=== PATIENT | female | born 1950 | race Caucasian/White ===

== ENCOUNTER 2020-01-27 09:15 | Outpatient (REF) | payer MEDICARE, OTHER, SELFPAY ==
[2020-01-27 10:10] LABS: MANUAL DIFF FLAG NO
[2020-01-27 10:13] LABS: Basophils Absolute Auto 0.1 X10*3/uL (0.0-0.2); Basophils Percent Auto 0.7 % (0-2); Eosinophils Absolute Auto 0.2 X10*3/uL (0.0-0.4); Eosinophils Percent Auto 2.2 % (0-4); Hematocrit 44.1 % (37-47); Hemoglobin 14.4 g/dl (12.0-16.0); Imm Gran Abs Auto 0.02 X10*3/uL (0.00-0.03); Imm Gran Pct Auto 0.3 % (0.0-0.4); Lymphocytes Absolute Auto 1.2 X10*3/uL (1.2-4.9); Lymphocytes Percent Auto 15.6 % (20-40); Mean Corpuscular HGB Conc 32.7 g/dl (31.0-35.0); Mean Corpuscular Hemoglobin 29.8 pg (27.0-33.0); Mean Corpuscular Volume 91.1 fL (80-98); Mean Platelet Volume 10.4 fL (9.4-12.3); Monocytes Absolute Auto 0.4 X10*3/uL (0.1-1.2); Neutrophils Absolute Auto 5.6 X10*3/uL (2.0-8.3); Neutrophils Percent Auto 76.2 % (45-73); Platelet Count 324 X10*3/uL (160-400); Red Blood Count 4.84 X10*6/uL (4.20-5.50); Red Cell Distribution Width 13.4 % (11.0-16.0); White Blood Count 7.4 X10*3/uL (4.8-10.8)
[2020-01-27 10:41] LABS: Alanine Aminotransferase 18 U/L (0-31); Albumin Level 4.3 g/dL (3.5-5.0); Alkaline Phosphatase 70 U/L (39-117); Anion Gap 13 (12-20); Aspartate Amino Transferase 20 U/L (5-31); Bilirubin Total 0.6 mg/dL (0.0-1.0); Blood Urea Nitrogen 10 mg/dL (9-16); Calcium 9.2 mg/dL (8.4-10.2); Carbon Dioxide 30 mmol/L (22-29); Chloride 101 mmol/L (96-108); Cholesterol 167 mg/dL; Estimated Glomerular Filt Rate 59; Glucose Fasting 125 mg/dL (60-99); HDL Cholesterol 37 mg/dL; LDL Cholesterol Calculated 107 mg/dl; Sodium 140 mmol/L (135-145); Total Protein 7.2 g/dL (6.5-8.0); Triglycerides 115 mg/dL
[2020-01-27 11:03] LABS: Free T4 (Free Thyroxine) 1.13 ng/dL (0.71-1.85); Thyroid Stimulating Hormone 5.77 uIU/mL (0.32-4.0); Vitamin D 25-OH Total 30.9 ng/mL (>30)
== END 2020-01-27 09:16 | disposition home or self-care (01) ==
LOC: HO.LAB 09:15
PROVIDERS: PCP Internal Medicine; Visit Provider Internal Medicine
DX: I10 Essential (primary) hypertension (principal); E78.00 Pure hypercholesterolemia, unspecified; R73.01 Impaired fasting glucose; E03.9 Hypothyroidism, unspecified; E66.9 Obesity, unspecified; E55.9 Vitamin D deficiency, unspecified
CPT/HCPCS: 36415; 80053; 80061; 82306; 84439; 84443; 85025

== ENCOUNTER 2020-03-26 13:11 | Outpatient (REF) | payer MEDICARE, OTHER, SELFPAY ==
--- NOTE | 2020-03-26 13:16 | MM_ITS ---
EXAMINATION: MM DIAGNOSTIC DIGITAL BREAST TOMOSYNTHESIS, LEFT CLINICAL INFORMATION: Short interval six-month follow-up probable benign, suspected vascular calcifications lower inner left breast. Stereotactic targeting performed 09/30/2019, no tissue sampling. The lifetime risk of breast cancer based on the Tyrer-Cuzick Model is 3%. COMPARISON: Stereotactic targeting 09/30/2019, mammography 09/26/2019, 09/20/2019 (BI-RADS 0), 09/14/2018 TECHNIQUE: Digital breast tomosynthesis is performed in both the craniocaudal and mediolateral oblique views along with computer-aided detection (CAD). Synthesized 2D images are generated from the tomosynthesis. Magnification views are obtained in the CC x2 and LM x2 views. FINDINGS: There are scattered areas of fibroglandular density (ACR BI-RADS breast composition Category b). The left breast calcifications lower inner quadrant are stable from prior diagnostic exam. Breast parenchymal pattern is able. There is no interval mass or architectural abnormality or developing density. Dermal lesion is again noted posterior medial breast. Results are provided to the patient at time of visit by the technologist. MM/MM tomosynthesis diagnostic LT IMPRESSION: Calcifications lower inner quadrant left breast are stable from prior diagnostic exam. ASSESSMENT: BI-RADS 3: Probably Benign RECOMMENDATION: Diagnostic mammography at time of annual bilateral mammography, due in 6 months. This patient's information was entered into a reminder system with a target due date for their next mammogram.
== END 2020-03-26 13:12 | disposition home or self-care (01) ==
LOC: HO.MAMMO 13:11
PROVIDERS: Visit Provider Surgery
DX: R92.1 Mammographic calcification found on diagnostic imaging of breast (principal)
CPT/HCPCS: 77061; 77065

== ENCOUNTER 2020-06-15 08:59 | Outpatient (REF) | payer MEDICARE, OTHER, SELFPAY ==
[2020-06-15 10:19] LABS: MANUAL DIFF FLAG NO
[2020-06-15 10:23] LABS: Basophils Absolute Auto 0.1 X10*3/uL (0.0-0.2); Basophils Percent Auto 0.8 % (0-2); Eosinophils Absolute Auto 0.2 X10*3/uL (0.0-0.4); Eosinophils Percent Auto 2.9 % (0-4); Hematocrit 44.8 % (37-47); Hemoglobin 14.2 g/dl (12.0-16.0); Imm Gran Abs Auto 0.02 X10*3/uL (0.00-0.03); Imm Gran Pct Auto 0.3 % (0.0-0.4); Lymphocytes Absolute Auto 1.4 X10*3/uL (1.2-4.9); Lymphocytes Percent Auto 23.1 % (20-40); Mean Corpuscular HGB Conc 31.7 g/dl (31.0-35.0); Mean Corpuscular Hemoglobin 28.8 pg (27.0-33.0); Mean Corpuscular Volume 90.9 fL (80-98); Mean Platelet Volume 10.3 fL (9.4-12.3); Monocytes Absolute Auto 0.3 X10*3/uL (0.1-1.2); Monocytes Percent Auto 5.6 % (2-11); Neutrophils Percent Auto 67.3 % (45-73); Platelet Count 308 X10*3/uL (160-400); Red Blood Count 4.93 X10*6/uL (4.20-5.50); Red Cell Distribution Width 13.3 % (11.0-16.0); White Blood Count 5.9 X10*3/uL (4.8-10.8)
[2020-06-15 10:52] LABS: Glucose Urine UA NEG (NEG); Leukocyte Esterase Urine NEG (NEG); Nitrite Urine NEG (NEG); PH 6.5 (5.0-8.0); Specific Gravity - Urine 1.025 (1.005-1.025); Urine Blood NEG (NEG); Urine Ketones 5 MG/DL (NEG); Urine Protein 1+ MG/DL (NEG-TRACE)
[2020-06-15 11:00] LABS: Appearance Urine HAZY; Color Urine DARK YELLOW
[2020-06-15 11:05] LABS: Alanine Aminotransferase 15 U/L (0-31); Albumin Level 4.4 g/dL (3.5-5.0); Alkaline Phosphatase 63 U/L (39-117); Anion Gap 13 (12-20); Aspartate Amino Transferase 17 U/L (5-31); Bilirubin Total 0.7 mg/dL (0.0-1.0); Blood Urea Nitrogen 13 mg/dL (9-16); Calcium 9.6 mg/dL (8.4-10.2); Carbon Dioxide 30 mmol/L (22-29); Chloride 102 mmol/L (96-108); Cholesterol 175 mg/dL; Estimated Glomerular Filt Rate > 60; Free T4 (Free Thyroxine) 1.06 ng/dL (0.71-1.85); Glucose Fasting 114 mg/dL (60-99); HDL Cholesterol 37 mg/dL; LDL Cholesterol Calculated 114 mg/dl; Sodium 141 mmol/L (135-145); Thyroid Stimulating Hormone 5.72 uIU/mL (0.32-4.0); Total Protein 7.3 g/dL (6.5-8.0); Triglycerides 124 mg/dL; Vitamin D 25-OH Total 31.9 ng/mL (>30)
[2020-06-15 11:31] LABS: Bacteria Urine 3+ /LPF; RBC Urine 0-2 /HPF (0); Squamous Epithelial Cell Urine 3+ /LPF
== END 2020-06-15 09:00 | disposition home or self-care (01) ==
LOC: HO.LAB 08:59
PROVIDERS: PCP Internal Medicine; Visit Provider Internal Medicine
DX: I10 Essential (primary) hypertension (principal); E78.00 Pure hypercholesterolemia, unspecified; R73.01 Impaired fasting glucose; E03.9 Hypothyroidism, unspecified; E66.9 Obesity, unspecified; E55.9 Vitamin D deficiency, unspecified
CPT/HCPCS: 36415; 80053; 80061; 81001; 81003; 82306; 84439; 84443; 85025

== ENCOUNTER 2020-09-05 14:12 | Outpatient (REF) | payer MEDICARE, OTHER, SELFPAY ==
--- NOTE | ~2020-09-05 | MM_ITS ---
EXAMINATION: MM DIAGNOSTIC DIGITAL BREAST TOMOSYNTHESIS, BILATERAL CLINICAL INFORMATION: Screening right breast study. Six-month follow-up left breast calcifications. The lifetime risk of breast cancer based on the Tyrer-Cuzick Model is 2.8%. COMPARISON: Mammography: 03/26/2020 and studies dating back to 05/23/2010. TECHNIQUE: Digital breast tomosynthesis is performed in both the craniocaudal and mediolateral oblique views along with computer-aided detection (CAD). Synthesized 2D images are generated from the tomosynthesis. Additional spot magnification views of the left breast in craniocaudal and 90 degree mediolateral views performed. FINDINGS: There are scattered areas of fibroglandular density (ACR BI-RADS breast composition Category b). No new abnormal dominant masses or new more suspicious grouping of microcalcifications identified. The left breast calcifications about the inferior medial aspect are stable compared to study of 03/26/2020. 12 month follow-up diagnostic mammogram including craniocaudal and 90 degree mediolateral spot compression films recommended. Results are provided to the patient at time of visit by the technologist. MM/MM tomosynthesis diagnostic BI IMPRESSION: There are no significant changes from prior study. ASSESSMENT: BI-RADS 3: Probably Benign. RECOMMENDATION: Diagnostic mammography at time of next annual exam, due in 12 months. To include 90 degree mediolateral and craniocaudal spot magnification views. This patient's information was entered into a reminder system with a target due date for their next mammogram.
== END 2020-09-05 14:13 | disposition home or self-care (01) ==
LOC: HO.MAMMO 14:12
PROVIDERS: PCP Internal Medicine; Visit Provider Surgery
DX: R92.1 Mammographic calcification found on diagnostic imaging of breast (principal)
CPT/HCPCS: 77062; 77066

== ENCOUNTER 2020-10-16 08:48 | Outpatient (REF) | payer MEDICARE, OTHER, SELFPAY ==
[2020-10-16 10:36] LABS: Glucose Urine UA NEG (NEG); Leukocyte Esterase Urine NEG (NEG); Nitrite Urine NEG (NEG); Specific Gravity - Urine >= 1.030 (1.005-1.025); UACC Culture Trigger NO; Urine Blood NEG (NEG); Urine Ketones NEG (NEG); Urine Protein 1+ MG/DL (NEG-TRACE)
[2020-10-16 10:44] LABS: Appearance Urine CLEAR; Color Urine YELLOW
[2020-10-16 11:18] LABS: Bacteria Urine 2+ /LPF; RBC Urine 0-2 /HPF (0); Squamous Epithelial Cell Urine 2+ /LPF; WBC Urine 0-2 /HPF (0-4)
== END 2020-10-16 08:49 | disposition home or self-care (01) ==
LOC: HO.LAB 08:48
PROVIDERS: PCP Internal Medicine; Visit Provider Internal Medicine
DX: I10 Essential (primary) hypertension (principal)
CPT/HCPCS: 81001

== ENCOUNTER 2021-03-15 09:47 | Outpatient (REF) | payer MEDICARE, OTHER, SELFPAY ==
[2021-03-15 10:05] LABS: MANUAL DIFF FLAG NO
[2021-03-15 10:15] LABS: Basophils Absolute Auto 0.1 X10*3/uL (0.0-0.2); Basophils Percent Auto 1.3 % (0-2); Eosinophils Absolute Auto 0.2 X10*3/uL (0.0-0.4); Eosinophils Percent Auto 2.9 % (0-4); Hematocrit 42.3 % (37.0-47.0); Hemoglobin 13.6 g/dl (12.0-16.0); Imm Gran Abs Auto 0.02 X10*3/uL (0.00-0.03); Imm Gran Pct Auto 0.4 % (0.0-0.4); Lymphocytes Absolute Auto 1.2 X10*3/uL (1.2-4.9); Lymphocytes Percent Auto 20.9 % (20-40); Mean Corpuscular HGB Conc 32.2 g/dl (31.0-35.0); Mean Corpuscular Hemoglobin 28.9 pg (27.0-33.0); Mean Platelet Volume 10.1 fL (9.4-12.3); Monocytes Absolute Auto 0.4 X10*3/uL (0.1-1.2); Monocytes Percent Auto 7.5 % (2-11); Neutrophils Absolute Auto 3.8 x10*3/uL (2.0-8.3); Platelet Count 308 X10*3/uL (160-400); Red Cell Distribution Width 13.3 % (11.0-16.0); White Blood Count 5.6 X10*3/uL (4.8-10.8)
[2021-03-15 11:13] LABS: Alanine Aminotransferase 15 U/L (0-31); Albumin Level 4.3 g/dL (3.5-5.0); Alkaline Phosphatase 63 U/L (39-117); Anion Gap 12 (12-20); Aspartate Amino Transferase 16 U/L (5-31); Bilirubin Total 0.6 mg/dL (0.0-1.0); Blood Urea Nitrogen 13 mg/dL (9-16); Calcium 9.9 mg/dL (8.4-10.2); Carbon Dioxide 27 mmol/L (22-29); Chloride 103 mmol/L (96-108); Cholesterol 139 mg/dL; Estimated Glomerular Filt Rate > 60; Glucose Fasting 111 mg/dL (60-99); HDL Cholesterol 37 mg/dL; LDL Cholesterol Calculated 87 mg/dl; Potassium 4.1 mmol/L (3.3-5.1); Sodium 138 mmol/L (135-145); Total Protein 7.2 g/dL (6.5-8.0); Triglycerides 79 mg/dL
[2021-03-15 11:27] LABS: Appearance Urine CLEAR; Color Urine YELLOW; Glucose Urine UA NEG (NEG); Leukocyte Esterase Urine NEG (NEG); Nitrite Urine NEG (NEG); Specific Gravity - Urine 1.025 (1.005-1.025); Urine Blood NEG (NEG); Urine Ketones NEG (NEG); Urine Protein TRACE MG/DL (NEG-TRACE)
[2021-03-15 11:36] LABS: Free T4 (Free Thyroxine) 1.17 ng/dL (0.71-1.85); Thyroid Stimulating Hormone 3.63 uIU/mL (0.32-4.0); Vitamin D 25-OH Total 28.5 ng/mL (>30)
== END 2021-03-15 09:48 | disposition home or self-care (01) ==
LOC: HO.LAB 09:47
PROVIDERS: PCP Internal Medicine; Visit Provider Internal Medicine
DX: I10 Essential (primary) hypertension (principal); E78.00 Pure hypercholesterolemia, unspecified; E03.9 Hypothyroidism, unspecified; E55.9 Vitamin D deficiency, unspecified
CPT/HCPCS: 36415; 80053; 80061; 81003; 82306; 84439; 84443; 85025

== ENCOUNTER 2021-07-09 10:32 | Outpatient (REF) | payer MEDICARE, OTHER, SELFPAY ==
[2021-07-09 10:58] LABS: MANUAL DIFF FLAG NO
[2021-07-09 11:36] LABS: Basophils Absolute Auto 0.1 X10*3/uL (0.0-0.2); Basophils Percent Auto 0.8 % (0-2); Eosinophils Absolute Auto 0.2 X10*3/uL (0.0-0.4); Eosinophils Percent Auto 2.5 % (0-4); Hematocrit 41.8 % (37.0-47.0); Hemoglobin 13.6 g/dl (12.0-16.0); Imm Gran Abs Auto 0.02 X10*3/uL (0.00-0.03); Imm Gran Pct Auto 0.3 % (0.0-0.4); Lymphocytes Absolute Auto 1.3 X10*3/uL (1.2-4.9); Lymphocytes Percent Auto 20.8 % (20-40); Mean Corpuscular HGB Conc 32.5 g/dl (31.0-35.0); Mean Corpuscular Hemoglobin 29.2 pg (27.0-33.0); Mean Corpuscular Volume 89.9 fL (80.0-98.0); Mean Platelet Volume 10.3 fL (9.4-12.3); Monocytes Absolute Auto 0.4 X10*3/uL (0.1-1.2); Monocytes Percent Auto 6.4 % (2-11); Neutrophils Absolute Auto 4.2 x10*3/uL (2.0-8.3); Neutrophils Percent Auto 69.2 % (45-73); Platelet Count 308 X10*3/uL (160-400); Red Blood Count 4.65 X10*6/uL (4.20-5.50); Red Cell Distribution Width 13.7 % (11.0-16.0); White Blood Count 6.1 X10*3/uL (4.8-10.8)
[2021-07-09 12:00] LABS: Estimated Average Glucose 120 mg/dL; Hemoglobin A1c % 5.8 %
[2021-07-09 12:09] LABS: Alanine Aminotransferase 13 U/L (0-31); Albumin Level 4.2 g/dL (3.5-5.0); Alkaline Phosphatase 63 U/L (39-117); Anion Gap 12 (12-20); Aspartate Amino Transferase 17 U/L (5-31); Bilirubin Total 0.9 mg/dL (0.0-1.0); Blood Urea Nitrogen 12 mg/dL (9-16); Calcium 9.7 mg/dL (8.4-10.2); Carbon Dioxide 27 mmol/L (22-29); Chloride 103 mmol/L (96-108); Cholesterol 144 mg/dL; Estimated Glomerular Filt Rate > 60; Glucose Fasting 106 mg/dL (60-99); HDL Cholesterol 35 mg/dL; LDL Cholesterol Calculated 94 mg/dl; Sodium 138 mmol/L (135-145); Total Protein 7.2 g/dL (6.5-8.0); Triglycerides 78 mg/dL
[2021-07-09 12:21] LABS: Free T4 (Free Thyroxine) 1.24 ng/dL (0.71-1.85); Thyroid Stimulating Hormone 2.83 uIU/mL (0.32-4.0); Vitamin D 25-OH Total 30.1 ng/mL (>30)
[2021-07-09 12:39] LABS: Appearance Urine CLEAR; Color Urine YELLOW; Glucose Urine UA NEG (NEG); Leukocyte Esterase Urine NEG (NEG); Nitrite Urine NEG (NEG); PH 6.5 (5.0-8.0); Urine Blood NEG (NEG); Urine Ketones 5 MG/DL (NEG); Urine Protein NEG (NEG-TRACE)
== END 2021-07-09 10:33 | disposition home or self-care (01) ==
LOC: HO.LAB 10:32
PROVIDERS: PCP Internal Medicine; Visit Provider Internal Medicine
DX: R73.01 Impaired fasting glucose (principal); E78.00 Pure hypercholesterolemia, unspecified; I10 Essential (primary) hypertension; E55.9 Vitamin D deficiency, unspecified; E03.9 Hypothyroidism, unspecified
CPT/HCPCS: 36415; 80053; 80061; 81003; 82306; 83036; 84439; 84443; 85025

== ENCOUNTER 2021-09-09 12:09 | Outpatient (REF) | payer MEDICARE, OTHER, SELFPAY ==
--- NOTE | ~2021-09-09 | MM_ITS ---
EXAMINATION: MM DIAGNOSTIC DIGITAL BREAST TOMOSYNTHESIS, BILATERAL CLINICAL INFORMATION: Due for yearly. Follow-up probable benign vascular calcifications lower inner left breast (stereotactic targeting 09/30/2019, and no tissue sampling). TC score 2%. No known family history breast cancer. COMPARISON: Mammography: 7 09/05/2020, 03/26/2020, 09/30/2019, 09/26/2019, 09/20/2019 (BI-RADS 0), 09/14/2018. TECHNIQUE: Digital breast tomosynthesis is performed in both the craniocaudal and mediolateral oblique views along with computer-aided detection (CAD). Synthesized 2D images are generated from the tomosynthesis. Magnification views left breast are obtained in the CC and LM views. Additional right spot MLO x2 and right MLO views are also obtained. FINDINGS: There are scattered areas of fibroglandular density (ACR BI-RADS breast composition Category b). Parenchymal pattern is similar to prior studies and there is no interval mass or architectural abnormality or interval abnormal calcifications. There is a dermal lesion again seen overlying the posterior inferior medial left breast. There are scattered benign calcifications central and anterior right breast. Some of the left breast calcifications for follow-up are coarser when compared with prior diagnostic exams. There are no increasing calcifications or interval pleomorphic types. The calcifications will be reassessed again at next bilateral annual mammography to conclude long-term surveillance. Results are provided to the patient at time of visit by the technologist. MM/MM tomosynthesis diagnostic BI IMPRESSION: -No significant changes from prior studies. -Left breast calcifications will be reassessed again at next bilateral annual mammography to conclude long-term surveillance. ASSESSMENT: BI-RADS 3: Probably Benign RECOMMENDATION: Diagnostic mammography at time of next annual exam, due in 12 months. This patient's information was entered into a reminder system with a target due date for their next mammogram.
== END 2021-09-09 12:10 | disposition home or self-care (01) ==
LOC: HO.MAMMO 12:09
PROVIDERS: PCP Internal Medicine; Visit Provider Internal Medicine
DX: R92.1 Mammographic calcification found on diagnostic imaging of breast (principal)
CPT/HCPCS: 77062; 77066

== ENCOUNTER 2021-11-14 09:19 | Outpatient (REF) | payer MEDICARE, OTHER, SELFPAY ==
[2021-11-14 09:45] LABS: Estimated Average Glucose 120 mg/dL; Hemoglobin A1c % 5.8 %
[2021-11-14 10:09] LABS: Alanine Aminotransferase 16 U/L (0-31); Albumin Level 4.3 g/dL (3.5-5.0); Alkaline Phosphatase 74 U/L (39-117); Anion Gap 14 (12-20); Aspartate Amino Transferase 17 U/L (5-31); Bilirubin Total 0.7 mg/dL (0.0-1.0); Blood Urea Nitrogen 12 mg/dL (9-16); Calcium 9.7 mg/dL (8.4-10.2); Carbon Dioxide 28 mmol/L (22-29); Chloride 105 mmol/L (96-108); Cholesterol 161 mg/dL; Estimated Glomerular Filt Rate > 60; Glucose Random 109 mg/dL (60-115); HDL Cholesterol 34 mg/dL; LDL Cholesterol Calculated 106 mg/dl; Sodium 143 mmol/L (135-145); Total Protein 7.2 g/dL (6.5-8.0); Triglycerides 109 mg/dL
[2021-11-14 10:32] LABS: TSH reflex Free T4 4.81 uIU/mL (0.32-4.0); Vitamin D 25-OH Total 47.9 ng/mL (>30)
[2021-11-14 11:07] LABS: Free T4 (Free Thyroxine) 1.14 ng/dL (0.71-1.85)
== END 2021-11-14 09:20 | disposition home or self-care (01) ==
LOC: HO.LAB 09:19
PROVIDERS: PCP Internal Medicine; Visit Provider Nurse Practitioner Family
DX: E55.9 Vitamin D deficiency, unspecified (principal); E03.9 Hypothyroidism, unspecified; E78.00 Pure hypercholesterolemia, unspecified; R73.01 Impaired fasting glucose; I10 Essential (primary) hypertension
CPT/HCPCS: 36415; 80053; 80061; 82306; 83036; 84439; 84443

== ENCOUNTER 2022-03-19 09:59 | Outpatient (REF) | payer MEDICARE, OTHER, SELFPAY ==
[2022-03-19 10:14] LABS: MANUAL DIFF FLAG NO
[2022-03-19 11:05] LABS: Basophils Absolute Auto 0.1 X10*3/uL (0.0-0.2); Eosinophils Absolute Auto 0.1 X10*3/uL (0.0-0.4); Eosinophils Percent Auto 2.2 % (0-4); Hematocrit 42.9 % (37.0-47.0); Hemoglobin 14.1 g/dl (12.0-16.0); Imm Gran Abs Auto 0.02 X10*3/uL (0.00-0.03); Imm Gran Pct Auto 0.3 % (0.0-0.4); Lymphocytes Absolute Auto 1.3 X10*3/uL (1.2-4.9); Lymphocytes Percent Auto 21.9 % (20-40); Mean Corpuscular HGB Conc 32.9 g/dl (31.0-35.0); Mean Corpuscular Hemoglobin 29.7 pg (27.0-33.0); Mean Corpuscular Volume 90.3 fL (80.0-98.0); Mean Platelet Volume 10.5 fL (9.4-12.3); Monocytes Absolute Auto 0.4 X10*3/uL (0.1-1.2); Monocytes Percent Auto 7.4 % (2-11); Neutrophils Percent Auto 67.2 % (45-73); Platelet Count 317 X10*3/uL (160-400); Red Blood Count 4.75 X10*6/uL (4.20-5.50); Red Cell Distribution Width 13.3 % (11.0-16.0)
[2022-03-19 11:28] LABS: Estimated Average Glucose 117 mg/dL; Hemoglobin A1c % 5.7 %
[2022-03-19 11:53] LABS: Alanine Aminotransferase 12 U/L (0-31); Albumin Level 4.2 g/dL (3.5-5.0); Alkaline Phosphatase 64 U/L (39-117); Anion Gap 11 (12-20); Aspartate Amino Transferase 16 U/L (5-31); Blood Urea Nitrogen 14 mg/dL (9-16); Calcium 9.5 mg/dL (8.4-10.2); Carbon Dioxide 28 mmol/L (22-29); Chloride 104 mmol/L (96-108); Cholesterol 150 mg/dL; Estimated Glomerular Filt Rate 58; Glucose Fasting 105 mg/dL (60-99); HDL Cholesterol 34 mg/dL; LDL Cholesterol Calculated 97 mg/dl; Potassium 3.8 mmol/L (3.3-5.1); Sodium 139 mmol/L (135-145); Total Protein 6.8 g/dL (6.5-8.0); Triglycerides 99 mg/dL
[2022-03-19 11:58] LABS: Free T4 (Free Thyroxine) 1.11 ng/dL (0.71-1.85); Thyroid Stimulating Hormone 3.75 uIU/mL (0.32-4.0); Vitamin D 25-OH Total 47.8 ng/mL (>30)
[2022-03-19 12:11] LABS: Appearance Urine Clear; Color Urine Dark Yellow; Glucose Urine UA Negative (Negative); Leukocyte Esterase Urine Negative (Negative); Nitrite Urine Negative (Negative); PH 6.5 (5.0-9.0); Specific Gravity - Urine 1.025 (1.005-1.025); Urine Blood Negative (Negative); Urine Ketones Trace mg/dL (Negative); Urine Protein Trace mg/dL (Neg-Trace)
== END 2022-03-19 10:00 | disposition home or self-care (01) ==
LOC: HO.LAB 09:59
PROVIDERS: PCP Internal Medicine; Visit Provider Internal Medicine
DX: E78.00 Pure hypercholesterolemia, unspecified (principal); E55.9 Vitamin D deficiency, unspecified; I10 Essential (primary) hypertension; E03.9 Hypothyroidism, unspecified; R73.01 Impaired fasting glucose
CPT/HCPCS: 36415; 80053; 80061; 81003; 82306; 83036; 84439; 84443; 85025

== ENCOUNTER 2022-08-04 10:21 | Outpatient (REF) | payer MEDICARE, OTHER, SELFPAY ==
[2022-08-04 10:44] LABS: MANUAL DIFF FLAG NO
[2022-08-04 11:24] LABS: Basophils Absolute Auto 0.1 X10*3/uL (0.0-0.2); Basophils Percent Auto 1.5 % (0-2); Eosinophils Absolute Auto 0.1 X10*3/uL (0.0-0.4); Eosinophils Percent Auto 2.2 % (0-4); Hematocrit 42.4 % (37.0-47.0); Hemoglobin 13.7 g/dl (12.0-16.0); Imm Gran Abs Auto 0.01 X10*3/uL (0.00-0.03); Imm Gran Pct Auto 0.2 % (0.0-0.4); Lymphocytes Absolute Auto 1.2 X10*3/uL (1.2-4.9); Mean Corpuscular HGB Conc 32.3 g/dl (31.0-35.0); Mean Corpuscular Hemoglobin 29.3 pg (27.0-33.0); Mean Corpuscular Volume 90.8 fL (80.0-98.0); Mean Platelet Volume 10.4 fL (9.4-12.3); Monocytes Absolute Auto 0.3 X10*3/uL (0.1-1.2); Monocytes Percent Auto 6.1 % (2-11); Neutrophils Absolute Auto 3.7 x10*3/uL (2.0-8.3); Platelet Count 284 X10*3/uL (160-400); Red Blood Count 4.67 X10*6/uL (4.20-5.50); Red Cell Distribution Width 13.6 % (11.0-16.0); White Blood Count 5.4 X10*3/uL (4.8-10.8)
[2022-08-04 11:48] LABS: Appearance Urine Clear; Color Urine Yellow; Glucose Urine UA Negative (Negative); Leukocyte Esterase Urine Trace (Negative); Nitrite Urine Negative (Negative); PH 6.5 (5.0-9.0); Specific Gravity - Urine 1.025 (1.005-1.025); UMIC TRIGGER UACC YES; Urine Blood Negative (Negative); Urine Ketones Negative (Negative); Urine Protein Negative (Neg-Trace)
[2022-08-04 11:55] LABS: Alanine Aminotransferase 14 U/L (0-31); Albumin Level 4.2 g/dL (3.5-5.0); Alkaline Phosphatase 67 U/L (39-117); Anion Gap 10 (12-20); Aspartate Amino Transferase 18 U/L (5-31); Bilirubin Total 0.9 mg/dL (0.0-1.0); Blood Urea Nitrogen 12 mg/dL (9-16); Calcium 9.5 mg/dL (8.4-10.2); Carbon Dioxide 29 mmol/L (22-29); Chloride 106 mmol/L (96-108); Cholesterol 160 mg/dL; Estimated Glomerular Filt Rate > 60; Glucose Fasting 105 mg/dL (60-99); HDL Cholesterol 35 mg/dL; LDL Cholesterol Calculated 110 mg/dl; Potassium 4.2 mmol/L (3.3-5.1); Sodium 141 mmol/L (135-145); Total Protein 6.8 g/dL (6.5-8.0); Triglycerides 75 mg/dL
[2022-08-04 12:17] LABS: Bacteria Urine 1+ (None Seen); Hyaline Casts Urine 0-2 /LPF (0-2); WBC Urine 0-5 /HPF (0-5)
[2022-08-04 12:21] LABS: Free T4 (Free Thyroxine) 1.04 ng/dL (0.71-1.85); Thyroid Stimulating Hormone 3.63 uIU/mL (0.32-4.0)
== END 2022-08-04 10:22 | disposition home or self-care (01) ==
LOC: HO.LAB 10:21
PROVIDERS: PCP Internal Medicine; Visit Provider Internal Medicine
DX: E03.9 Hypothyroidism, unspecified (principal); I10 Essential (primary) hypertension; E78.00 Pure hypercholesterolemia, unspecified; E55.9 Vitamin D deficiency, unspecified; R30.0 Dysuria
CPT/HCPCS: 36415; 80053; 80061; 81001; 82306; 84439; 84443; 85025

== ENCOUNTER 2022-10-03 10:46 | Outpatient (REF) | payer MEDICARE, OTHER, SELFPAY ==
--- NOTE | ~2022-10-03 | MM_ITS ---
EXAMINATION: MM DIAGNOSTIC DIGITAL BREAST TOMOSYNTHESIS, BILATERAL CLINICAL INFORMATION: Patient had an aborted stereotactic biopsy of left breast calcifications in August 2019. The exam was aborted since the calcifications in question in the lower inner quadrant of the left breast were felt to be vascular. Subsequent short interval follow-up mammograms were performed which showed no changes in the calcifications. The patient presents from follow-up left mammography and right screening mammography. The lifetime risk of breast cancer based on the Tyrer-Cuzick Model is 2.3%. COMPARISON: Mammography: This study is compared with prior mammograms dating back to 09/30/2019. TECHNIQUE: Digital breast tomosynthesis is performed in both the craniocaudal and mediolateral oblique views along with computer-aided detection (CAD). Synthesized 2D images are generated from the tomosynthesis. CC and lateral magnification imaging of the left breast calcifications were performed. FINDINGS: There are scattered areas of fibroglandular density (ACR BI-RADS breast composition Category b). There are no significant masses, abnormal calcifications, or other abnormalities in either breast. The calcifications in the lower inner quadrant of the left breast are unchanged, benign and vascular. Imaging with tomosynthesis is most helpful in discerning whether calcifications are vascular. Results are provided to the patient at time of visit by the technologist. MM/MM tomosynthesis diagnostic BI IMPRESSION: No mammographic evidence of malignancy in either breast. Routine annual screening mammography is advised. ASSESSMENT: BI-RADS BI-RADS 2 - Benign Findings RECOMMENDATION: 1 year F/U This patient's information was entered into a reminder system with a target due date for their next mammogram.
== END 2022-10-03 10:47 | disposition home or self-care (01) ==
LOC: HO.MAMMO 10:46
PROVIDERS: PCP Internal Medicine; Visit Provider Internal Medicine
DX: R92.1 Mammographic calcification found on diagnostic imaging of breast (principal)
CPT/HCPCS: 77062; 77066

== ENCOUNTER → 2022-10-03 11:00 | Outpatient (BNV) | payer MEDICARE, SELFPAY | PROVIDERS: PCP Internal Medicine; Visit Provider Radiology Diagnostic Radiology | DX: R92.2 Inconclusive mammogram (principal) | CPT/HCPCS: 77062; 77066 ==

== ENCOUNTER 2022-12-16 09:18 | Outpatient (REF) | payer MEDICARE, SELFPAY ==
[2022-12-16 09:49] LABS: MANUAL DIFF FLAG NO
[2022-12-16 09:57] LABS: Basophils Absolute Auto 0.1 X10*3/uL (0.0-0.2); Eosinophils Absolute Auto 0.2 X10*3/uL (0.0-0.4); Eosinophils Percent Auto 3.4 % (0-4); Hematocrit 43.4 % (37.0-47.0); Hemoglobin 14.1 g/dl (12.0-16.0); Imm Gran Abs Auto 0.02 X10*3/uL (0.00-0.03); Imm Gran Pct Auto 0.3 % (0.0-0.4); Lymphocytes Absolute Auto 0.9 X10*3/uL (1.2-4.9); Lymphocytes Percent Auto 15.3 % (20-40); Mean Corpuscular HGB Conc 32.5 g/dl (31.0-35.0); Mean Corpuscular Hemoglobin 29.5 pg (27.0-33.0); Mean Corpuscular Volume 90.8 fL (80.0-98.0); Mean Platelet Volume 9.9 fL (9.4-12.3); Monocytes Absolute Auto 0.3 X10*3/uL (0.1-1.2); Monocytes Percent Auto 5.4 % (2-11); Neutrophils Absolute Auto 4.4 x10*3/uL (2.0-8.3); Neutrophils Percent Auto 74.6 % (45-73); Platelet Count 304 X10*3/uL (160-400); Red Blood Count 4.78 X10*6/uL (4.20-5.50); Red Cell Distribution Width 13.7 % (11.0-16.0); White Blood Count 5.9 X10*3/uL (4.8-10.8)
[2022-12-16 10:52] LABS: Alanine Aminotransferase 15 U/L (0-31); Albumin Level 4.1 g/dL (3.5-5.0); Alkaline Phosphatase 63 U/L (39-117); Anion Gap 14 (12-20); Aspartate Amino Transferase 26 U/L (5-31); Bilirubin Total 0.6 mg/dL (0.0-1.0); Blood Urea Nitrogen 11 mg/dL (9-16); Calcium 9.6 mg/dL (8.4-10.2); Carbon Dioxide 25 mmol/L (22-29); Chloride 105 mmol/L (96-108); Cholesterol 172 mg/dL (<200); Estimated Glomerular Filt Rate > 60; Glucose Fasting 116 mg/dL (60-99); HDL Cholesterol 37 mg/dL (>40); LDL Cholesterol Calculated 117 mg/dL (<100); Sodium 140 mmol/L (135-145); Total Protein 7.3 g/dL (6.5-8.0); Triglycerides 92 mg/dL (<150)
[2022-12-16 11:02] LABS: TSH reflex Free T4 5.21 uIU/mL (0.32-4.0)
[2022-12-16 11:12] LABS: Appearance Urine Clear; Color Urine Yellow; Glucose Urine UA Negative (Negative); Leukocyte Esterase Urine Trace (Negative); Nitrite Urine Negative (Negative); PH 6.5 (5.0-9.0); Specific Gravity - Urine 1.025 (1.005-1.025); UMIC TRIGGER UACC YES; Urine Blood Negative (Negative); Urine Ketones Negative (Negative); Urine Protein Negative (Neg-Trace)
[2022-12-16 11:20] LABS: Bacteria Urine None Seen (None Seen); Hyaline Casts Urine 0-2 /LPF (0-2); WBC Urine 0-5 /HPF (0-5)
[2022-12-16 11:34] LABS: Free T4 (Free Thyroxine) 1.02 ng/dL (0.71-1.85)
== END 2022-12-16 09:19 | disposition home or self-care (01) ==
LOC: HO.LAB 09:18
PROVIDERS: PCP Internal Medicine; Visit Provider Internal Medicine
DX: E78.00 Pure hypercholesterolemia, unspecified (principal); I10 Essential (primary) hypertension; R30.0 Dysuria
CPT/HCPCS: 36415; 80053; 80061; 81001; 84439; 84443; 85025

== ENCOUNTER 2022-12-17 13:01 | Outpatient (AMB) | payer MEDICARE, MEDICAID, SELFPAY ==
[2022-12-17 13:08] VITALS: BP 124/80; PULSE 74; O2SAT 96; BMI 32.0
--- NOTE | 2022-12-17 13:08 | A.OFFPC_ITS ---
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 Accompanied by: Self / Same As Patient Allergies fluoxetine Adverse Reaction (Unknown, Verified 12/17/22 13:39) increasing anxiety and jitteriness Medication List - Last Reconciled 12/17/22 by Kit Turner MD cholecalciferol (vitamin D3) 50 mcg PO DAILY escitalopram oxalate 10 mg PO DAILY 90 days levothyroxine 88 mcg PO DAILY 90 days simvastatin 10 mg PO BEDTIME valsartan-hydrochlorothiazide 160-12.5 mg 1 tab PO DAILY 90 days Tobacco use date assessed: 12/17/22 Fall risk assessment: No Falls in past year Last assessed Fall Risk: 12/17/22 Dental Screening Dental Screen Date: 12/17/22 Did you have a dental visit in the last 12 months?: No Did you have a dental problem in the last 6 months where you did not have access to dental care?: No Was dental information given to patient?: No HPI 4 month f/u HPI Details Patient comes in today for her follow up visit States that she feels okay Is currently busy going through her mother's estate - mother just at 98 y/o last September 2022 She denies any headaches or dizziness Denies any chest pains, no SOB No nausea/vomiting, no abdominal pain No change in bowel habits noted States that she is planning now to switch her Simvastatin over to morning dosing as she still keeps forgetting to take her Rx at bedtime sometimes Had her follow up labs done yesterday - to discuss her results [facility] Medical History Dermatitis Knee pain Obesity (BMI 30-39.9) Anxiety Vitamin D deficiency Impaired fasting glucose Acquired hypothyroidism Pure hypercholesterolemia Benign essential hypertension Surgical History History of surgery Family History Father Stroke Mother Hypertension TIA (transient ischemic attack) Sister Hodgkin disease Other Mental health problem Social History Housing: House Alcohol intake: never Patient Tobacco Use Status: Former Tobacco user e-Cigarette/Vaping Use: Never Used Second Hand Smoke Exposure: Yes service: No Current occupational status: retired Cognitive needs: No Hearing needs: No Vision needs: Yes (glasses) Questionnaire PHQ-9 Over the last 2 weeks, how often have you been bothered by any of the following problems? 1. Little interest or pleasure in doing things: not at all 2. Feeling down, depressed, or hopeless: not at all 3. Trouble falling or staying asleep, or sleeping too much: not at all 4. Feeling tired or having little energy: not at all 5. Poor appetite or overeating: not at all 6. Feeling bad about yourself - or that you are a failure or have let yourself or your family down: not at all 7. Trouble concentrating on things, such as reading the newspaper or watching television: not at all 8. Moving or speaking so slowly that other people could have noticed. Or the opposite - being so fidgety or restless that you have been moving around a lot more than usual: not at all 9. Thoughts that you would be better off or of hurting yourself in some way: not at all Total score: 0 Depression Screening Interpretation: Negative Depression Screening Done: Yes 09056 - PHQ-9 Billing: Yes Source: Developed by Drs. Girma Holcomb, Huong Pugh, Damien Mccabe and colleagues, with an educational sheila from [email or web address]. Thrive Questionnaire Date Thrive assessed: 12/17/22 I am a: Patient What is your living situation today?: I have a steady place to live Within the past 12 months, did the food you bought not last and you didn't have the money to get more?: Never true Within the past 12 months, did you worry whether your food would run out before you got money to buy more?: Never true Do you have trouble paying for medicines?: No Do you have trouble getting transportation to medical appointments?: No Do you have trouble paying your heating and electricity bill?: No Do you have trouble taking care of your child, family member or friend?: No Do you have trouble with day-to-day activities such as bathing, preparing meals, shopping, managing finances, etc.?: No Are you currently unemployed and looking for a job?: No Are you interested in more education?: No Currently or been in a relationship where the following occur: no concerns reported AUDIT C Alcohol Use Questionnaire (AUDIT-C) 1. How often do you have a drink containing alcohol?: Never 3. How often do you have six or more drinks on one occasion?: Never Total Score: 0 Score Reviewed/Action Taken: Yes KARINA-7 AMB Questionnaire KARINA-7 Date KARINA - 7 assessed: 12/17/22 Feeling nervous, anxious, or on edge: 2 = More than half the days Not being able to stop or control worryin = More than half the days Worrying too much about different things: 2 = More than half the days Trouble relaxin = Several days Being so restless that it is hard to sit still: 1 = Several days Becoming easily annoyed or irritable: 1 = Several days Feeling afraid as if something awful might happen: 2 = More than half the days Total KARINA-7 score (0-4 normal; 5-9 mild; 10-14 moderate; 15-21 severe): 11 Source: Developed by Drs. Girma Holcomb, Huong Pugh, Damien Mccabe and colleagues, with an educational sheila from [email or web address]. KARINA-7 Assessment Billing KARINA-7 Assessment Tool: KARINA-7 Assessment 88572 Review of Systems Const Denies fatigue, Denies fever(s) and Denies headache(s) ENT Denies dysphagia, Denies dizziness, Denies otalgia, Denies headache(s), Denies odynophagia and Denies sore throat Card Denies chest pain, Denies palpitations and Denies dyspnea Resp Denies cough and Denies dyspnea GI Denies abdominal pain, Denies constipation, Denies dysphagia, Denies heartburn, Denies diarrhea, Denies nausea, Denies odynophagia and Denies vomiting Denies difficulty voiding, Denies nocturia, Denies dysuria and Denies urinary urgency Musc Reports arthralgias (on and off over the knees) Neuro Denies dizziness and Denies headache(s) Psych Reports anxiety (better controlled again on Rx) Endo Denies fatigue and Denies palpitations Physical exam (Primary Care) Vital Signs: Last Vital Signs Pulse 74 12/17/22 13:08 BP 124/80 12/17/22 13:08 Pulse Ox 96 12/17/22 13:08 Oxygen Delivery Method Room Air 12/17/22 13:08 BMI result Body Mass Index 32.0 Tobacco/Smoking Status: Tobacco use Status Tobacco use date assessed 12/17/22 12/17/22 13:15 Patient Tobacco Use Status Former Tobacco user 12/17/22 13:15 e-Cigarette/Vaping Use Never Used 12/17/22 13:15 PHQ-9: PHQ-9 Score PHQ-9: Total score 0 12/17/22 13:15 Depression Screening Interpretation: Negative Thrive Assessment: Date of Thrive Assessment Date Thrive assessed 12/17/22 12/17/22 13:15 Currently or been in a relationship where the following occur: no concerns reported Const General: no acute distress and alert HENMT Ears: TM's normal bilaterally and EAC's normal Throat: Yes posterior oropharynx normal and Yes tonsils normal (no TP congestion noted) Neck Neck: Yes no lymphadenopathy and Yes supple Resp Auscultation: clear to auscultation bilaterally, no rales and no wheezes Cardio Rate: regular rate Rhythm: regular rhythm Heart sounds: no murmurs GI Palpation (GI): Soft to palpation and nontender Auscultation: normal bowel sounds Skin Rashes: no rashes Extrem General: Yes no clubbing, cyanosis or edema Results Reviewed Results Reviewed: Laboratory Tests 12/16/22 12/16/22 12/16/22 09:41 09:41 09:48 WBC 5.9 Hgb 14.1 Hct 43.4 Plt Count 304 Sodium 140 Potassium 4.0 Creatinine 0.85 Estimated GFR > 60 Fasting Glucose Calcium AST 26 ALT 15 Triglycerides 92 Cholesterol 172 LDL Cholesterol, Calc 117 H HDL Cholesterol 37 L TSH 5.21 H Free T4 1.02 Ur Specific [place] 1.025 Urine Protein Negative Urine Glucose (UA) Negative Urine Blood Negative 12/16/22 12/16/22 09:48 09:48 WBC Hgb Hct Plt Count Sodium Potassium Creatinine Estimated GFR Fasting Glucose 116 H Calcium 9.6 AST ALT Triglycerides Cholesterol LDL Cholesterol, Calc HDL Cholesterol TSH Free T4 Ur Specific [place]ens Urine Protein Urine Glucose (UA) Urine Blood Assessment and Plan Assessment & Plan (1) Pure hypercholesterolemia: Code(s): E78.00 - Pure hypercholesterolemia, unspecified Plan: Results of her labs done yesterday reviewed and discussed with patient Reinforced low cholesterol diet Continue Simvastatin 10 mg QD Will recheck her labs and fasting lipids in 4 months for follow up (2) Benign essential hypertension: Code(s): I10 - Essential (primary) hypertension Plan: Reinforced low sodium diet - goal is systolic BP of at least 130 to 140 mm or less Was previously switched from Valsartan-HCT 160-12.5 mg QD to Valsartan 160 mg QD due to orthostasis but is now back on Valsartan-HCT 160-12.5 mg QD - states that her feet started swelling up when her Rx was changed Feels that she is currently doing much better on Valsartan-HCT with no further orthostatic changes in her blood pressure and she has no edema Patient instructed to continue monitoring her BP regularly/closely (3) Acquired hypothyroidism: Code(s): E03.9 - Hypothyroidism, unspecified Plan: TFTs were normal on her recent labs Continue Levothyroxine at 88 mcg QD Will continue to monitor her TFTs regularly (4) Impaired fasting glucose: Code(s): R73.01 - Impaired fasting glucose Plan: Reinforced low calorie diet/exercise as tolerated Her FBS is again elevated at 116 mg/dl on her labs done yesterday; HgbA1c was normal at 5.7% when checked earlier this year Will continue to monitor her glycemic control closely (5) Vitamin D deficiency: Code(s): E55.9 - Vitamin D deficiency, unspecified Plan: Continue Vitamin D3 1000 units QD (6) Anxiety: Code(s): F41.9 - Anxiety disorder, unspecified Plan: Continue Escitalopram 10 mg QD She self-discontinued Rx a couple of years ago and did well without Rx for a while but her anxiety increased again recently and she asked to be started back on her med (7) Obesity (BMI 30-39.9): Code(s): E66.9 - Obesity, unspecified Plan: Reinforced diet/exercise as tolerated/lose weight Plan Follow up in 4 months Orders: Orders Complete Blood Count Auto Diff 4 Months I10 - Essential (primary) hypertension Comprehensive [place]. Panel Fast 4 Months E78.00 - Pure hypercholesterolemia, unspecified Lipid Panel 4 Months E78.00 - Pure hypercholesterolemia, unspecified Free T4 (Free Thyroxine) 4 Months E03.9 - Hypothyroidism, unspecified UA CC w/rflx Micro + Cult 4 Months R30.0 - Dysuria Thyroid Stimulating Hormone 4 Months E03.9 - Hypothyroidism, unspecified Vitamin D 25-OH Total 4 Months E55.9 - Vitamin D deficiency, unspecified Coding Level of Care Code Est Pt Level 4 (67945) Diagnoses Pure hypercholesterolemia E78.00 Benign essential hypertension I10 Acquired hypothyroidism E03.9 Impaired fasting glucose R73.01 Vitamin D deficiency E55.9 Anxiety F41.9 Obesity (BMI 30-39.9) E66.9 Additional Codes KARINA-7 Assessment Billing - KARINA-7 Assessment Tool: KARINA-7 Assessment [id number] ([id number])
== END 2022-12-17 13:45 | disposition home or self-care (01) ==
PROVIDERS: PCP Internal Medicine; Visit Provider Internal Medicine
DX: E78.00 Pure hypercholesterolemia, unspecified (principal); I10 Essential (primary) hypertension; E66.9 Obesity, unspecified; Z68.32 Body mass index [BMI] 32.0-32.9, adult; E03.9 Hypothyroidism, unspecified; E55.9 Vitamin D deficiency, unspecified; R73.01 Impaired fasting glucose; F41.9 Anxiety disorder, unspecified
CPT/HCPCS: 99214

== ENCOUNTER 2023-04-23 09:19 | Outpatient (REF) | payer MEDICARE, SELFPAY ==
[2023-04-23 09:36] LABS: MANUAL DIFF FLAG NO
[2023-04-23 10:14] LABS: Basophils Absolute Auto 0.1 X10*3/uL (0.0-0.2); Basophils Percent Auto 1.2 % (0-2); Eosinophils Absolute Auto 0.2 X10*3/uL (0.0-0.4); Eosinophils Percent Auto 2.8 % (0-4); Hematocrit 43.7 % (37.0-47.0); Hemoglobin 14.3 g/dl (12.0-16.0); Imm Gran Abs Auto 0.01 X10*3/uL (0.00-0.03); Imm Gran Pct Auto 0.2 % (0.0-0.4); Lymphocytes Absolute Auto 1.3 X10*3/uL (1.2-4.9); Lymphocytes Percent Auto 23.7 % (20-40); Mean Corpuscular HGB Conc 32.7 g/dl (31.0-35.0); Mean Corpuscular Hemoglobin 29.4 pg (27.0-33.0); Mean Corpuscular Volume 89.7 fL (80.0-98.0); Mean Platelet Volume 9.9 fL (9.4-12.3); Monocytes Absolute Auto 0.4 X10*3/uL (0.1-1.2); Monocytes Percent Auto 6.8 % (2-11); Neutrophils Absolute Auto 3.7 x10*3/uL (2.0-8.3); Neutrophils Percent Auto 65.3 % (45-73); Platelet Count 306 X10*3/uL (160-400); Red Blood Count 4.87 X10*6/uL (4.20-5.50); Red Cell Distribution Width 13.9 % (11.0-16.0); White Blood Count 5.6 X10*3/uL (4.8-10.8)
[2023-04-23 10:55] LABS: Appearance Urine Clear; Color Urine Yellow; Glucose Urine UA Negative (Negative); Leukocyte Esterase Urine Negative (Negative); Nitrite Urine Positive (Negative); PH 6.5 (5.0-9.0); Specific Gravity - Urine 1.015 (1.005-1.025); UMIC TRIGGER UACC YES; Urine Blood Negative (Negative); Urine Ketones Trace mg/dL (Negative); Urine Protein 30 (1+) mg/dL (Neg-Trace)
[2023-04-23 11:15] LABS: Bacteria Urine 2+ (None Seen); Hyaline Casts Urine 0-2 /LPF (0-2); UACC Culture Trigger YES; WBC Urine 0-5 /HPF (0-5)
[2023-04-23 11:15] LABS: Alanine Aminotransferase 22 U/L (0-31); Albumin Level 4.2 g/dL (3.5-5.0); Alkaline Phosphatase 71 U/L (39-117); Anion Gap 14 (12-20); Aspartate Amino Transferase 22 U/L (5-31); Bilirubin Total 0.8 mg/dL (0.0-1.0); Blood Urea Nitrogen 12 mg/dL (9-16); Calcium 9.8 mg/dL (8.4-10.2); Carbon Dioxide 30 mmol/L (22-29); Chloride 101 mmol/L (96-108); Cholesterol 206 mg/dL (<200); Estimated Glomerular Filt Rate > 60; Glucose Fasting 109 mg/dL (60-99); HDL Cholesterol 39 mg/dL (>40); LDL Cholesterol Calculated 141 mg/dL (<100); Potassium 4.1 mmol/L (3.3-5.1); Sodium 141 mmol/L (135-145); Total Protein 7.6 g/dL (6.5-8.0); Triglycerides 130 mg/dL (<150)
[2023-04-23 11:17] LABS: RBC Urine 0-2 /HPF (0-2)
[2023-04-23 11:33] LABS: Free T4 (Free Thyroxine) 0.98 ng/dL (0.71-1.85); Thyroid Stimulating Hormone 9.41 uIU/mL (0.32-4.0)
== END 2023-04-23 09:20 | disposition home or self-care (01) ==
LOC: HO.LAB 09:19
PROVIDERS: PCP Internal Medicine; Visit Provider Internal Medicine
DX: E78.00 Pure hypercholesterolemia, unspecified (principal); E03.9 Hypothyroidism, unspecified; E55.9 Vitamin D deficiency, unspecified; I10 Essential (primary) hypertension; R30.0 Dysuria
CPT/HCPCS: 36415; 80053; 80061; 81001; 82306; 84439; 84443; 85025; 87086

== ENCOUNTER 2023-04-24 09:29 | Outpatient (AMB) | payer MEDICARE, SELFPAY ==
[2023-04-24 09:30] VITALS: BP 140/70; PULSE 82; RESP 16; O2SAT 97; BMI 32.3
--- NOTE | 2023-04-24 09:30 | MHC.PC.OV ---
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 Required: No Accompanied by: Self / Same As Patient Allergies fluoxetine Adverse Reaction (Unknown, Verified 04/24/23 10:04) increasing anxiety and jitteriness Medication List - Last Reconciled 04/24/23 by Kit Turner MD cholecalciferol (vitamin D3) 50 mcg PO DAILY escitalopram oxalate 10 mg PO DAILY 90 days levothyroxine 88 mcg PO DAILY 90 days simvastatin 10 mg PO BEDTIME valsartan-hydrochlorothiazide 160-12.5 mg 1 tab PO DAILY 90 days Tobacco use date assessed: 04/24/23 Fall risk assessment: No Falls in past year Last assessed Fall Risk: 04/24/23 Dental Screening Dental Screen Date: 04/24/23 Did you have a dental visit in the last 12 months?: Yes Did you have a dental problem in the last 6 months where you did not have access to dental care?: No Was dental information given to patient?: Patient has dentist HPI HTN, hyperlipidemia, hypothyroidism HPI Details Patient comes in today for her follow up visit States that she feels okay She denies any headaches or dizziness Denies any chest pains, no SOB No nausea/vomiting, no abdominal pain No change in bowel habits noted Needs a few of her Rx refilled Had her follow up labs done yesterday - to discuss her results [facility] Medical History Dermatitis Knee pain Obesity (BMI 30-39.9) Anxiety Vitamin D deficiency Impaired fasting glucose Acquired hypothyroidism Pure hypercholesterolemia Benign essential hypertension Surgical History History of surgery Family History Father Stroke Mother Hypertension TIA (transient ischemic attack) Sister Hodgkin disease Other Mental health problem Social History Housing: House Alcohol intake: never Patient Tobacco Use Status: Former Tobacco user e-Cigarette/Vaping Use: Never Used Second Hand Smoke Exposure: Yes service: No Current occupational status: retired Cognitive needs: No Hearing needs: No Vision needs: Yes (glasses) Questionnaire PHQ-9 Over the last 2 weeks, how often have you been bothered by any of the following problems? 1. Little interest or pleasure in doing things: not at all 2. Feeling down, depressed, or hopeless: not at all 3. Trouble falling or staying asleep, or sleeping too much: not at all 4. Feeling tired or having little energy: not at all 5. Poor appetite or overeating: not at all 6. Feeling bad about yourself - or that you are a failure or have let yourself or your family down: not at all 7. Trouble concentrating on things, such as reading the newspaper or watching television: not at all 8. Moving or speaking so slowly that other people could have noticed. Or the opposite - being so fidgety or restless that you have been moving around a lot more than usual: not at all 9. Thoughts that you would be better off or of hurting yourself in some way: not at all Total score: 0 Depression Screening Interpretation: Negative Depression Screening Done: Yes 87294 - PHQ-9 Billing: Yes Source: Developed by Drs. Girma Holcomb, Huong Pugh, Damien Mccabe and colleagues, with an educational sheila from [employer] Thrive Questionnaire Date Thrive assessed: 04/24/23 I am a: Patient What is your living situation today?: I have a steady place to live Within the past 12 months, did the food you bought not last and you didn't have the money to get more?: Never true Within the past 12 months, did you worry whether your food would run out before you got money to buy more?: Never true Do you have trouble paying for medicines?: No Do you have trouble getting transportation to medical appointments?: No Do you have trouble paying your heating and electricity bill?: No Do you have trouble taking care of your child, family member or friend?: No Do you have trouble with day-to-day activities such as bathing, preparing meals, shopping, managing finances, etc.?: No Are you currently unemployed and looking for a job?: No Are you interested in more education?: No Please select the resources that you would like help with: None Currently or been in a relationship where the following occur: no concerns reported THRIVE Score: 0 AUDIT C Alcohol Use Questionnaire (AUDIT-C) 1. How often do you have a drink containing alcohol?: Never 3. How often do you have six or more drinks on one occasion?: Never Total Score: 0 Score Reviewed/Action Taken: Yes KARINA-7 AMB Questionnaire KARINA-7 Date KARINA - 7 assessed: 04/24/23 Feeling nervous, anxious, or on edge: 0 = Not at all Not being able to stop or control worryin = Not at all Worrying too much about different things: 0 = Not at all Trouble relaxin = Not at all Being so restless that it is hard to sit still: 0 = Not at all Becoming easily annoyed or irritable: 0 = Not at all Feeling afraid as if something awful might happen: 0 = Not at all Total KARINA-7 score (0-4 normal; 5-9 mild; 10-14 moderate; 15-21 severe): 0 Source: Developed by Drs. Girma Holcomb, Huong Pugh, Damien Mccabe and colleagues, with an educational sheila from [employer] KARINA-7 Assessment Billing KARINA-7 Assessment Tool: KARINA-7 Assessment 90099 Review of Systems Const Denies fatigue, Denies fever(s) and Denies headache(s) ENT Denies dysphagia, Denies dizziness, Denies otalgia, Denies headache(s), Denies odynophagia and Denies sore throat Card Denies chest pain, Denies palpitations and Denies dyspnea Resp Denies cough and Denies dyspnea GI Denies abdominal pain, Denies constipation, Denies dysphagia, Denies heartburn, Denies diarrhea, Denies nausea, Denies odynophagia and Denies vomiting Denies difficulty voiding, Denies nocturia, Denies dysuria and Denies urinary urgency Musc Reports arthralgias (on and off over the knees) Neuro Denies dizziness and Denies headache(s) Psych Reports anxiety (better controlled on Rx) Endo Denies fatigue and Denies palpitations Physical exam (Primary Care) Vital Signs: Last Vital Signs Pulse 82 02/23/24 09:30 Resp 16 04/24/23 09:30 BP 140/70 H 04/24/23 09:30 Pulse Ox 97 04/24/23 09:30 Oxygen Delivery Method Room Air 04/24/23 09:30 BMI result Body Mass Index 32.3 Tobacco/Smoking Status: Tobacco use Status Tobacco use date assessed 04/24/23 04/24/23 09:42 Patient Tobacco Use Status Former Tobacco user 04/24/23 09:30 e-Cigarette/Vaping Use Never Used 04/24/23 09:30 PHQ-9: PHQ-9 Score PHQ-9: Total score 0 04/24/23 09:42 Depression Screening Interpretation: Negative Thrive Assessment: Date of Thrive Assessment Date Thrive assessed 04/24/23 04/24/23 09:42 Currently or been in a relationship where the following occur: no concerns reported Const General: no acute distress and alert HENMT Ears: TM's normal bilaterally and EAC's normal Throat: Yes posterior oropharynx normal and Yes tonsils normal (no TP congestion noted) Neck Neck: Yes no lymphadenopathy and Yes supple Resp Auscultation: clear to auscultation bilaterally, no rales and no wheezes Cardio Rate: regular rate Rhythm: regular rhythm Heart sounds: no murmurs GI Palpation (GI): Soft to palpation and nontender Auscultation: normal bowel sounds Skin Rashes: no rashes Extrem General: Yes no clubbing, cyanosis or edema Results Reviewed Results Reviewed: Laboratory Tests 03/19/22 12/16/22 12/16/22 10:14 09:48 09:48 WBC Hgb Hct Plt Count Sodium Potassium Creatinine Estimated GFR Fasting Glucose Hemoglobin A1c % 5.7 Calcium AST ALT Triglycerides 92 Cholesterol LDL Cholesterol, Calc 117 H HDL Cholesterol 25-OH Vitamin D Total TSH Free T4 Ur Specific [place] Urine Protein Urine Glucose (UA) Urine Blood Urine Nitrite Ur Leukocyte Esterase 12/16/22 12/16/22 04/23/23 09:48 09:48 09:33 WBC Hgb Hct Plt Count Sodium Potassium Creatinine Estimated GFR Fasting Glucose Hemoglobin A1c % Calcium AST ALT Triglycerides Cholesterol 172 LDL Cholesterol, Calc HDL Cholesterol 37 L 25-OH Vitamin D Total TSH Free T4 Ur Specific [place] 1.015 Urine Protein 30 (1+) H Urine Glucose (UA) Negative Urine Blood Urine Nitrite Ur Leukocyte Esterase 04/23/23 04/23/23 04/23/23 09:33 09:34 09:34 WBC 5.6 Hgb 14.3 Hct 43.7 Plt Count 306 Sodium 141 Potassium 4.1 Creatinine 0.87 Estimated GFR > 60 Fasting Glucose 109 H Hemoglobin A1c % Calcium 9.8 AST 22 ALT 22 Triglycerides 130 Cholesterol LDL Cholesterol, Calc HDL Cholesterol 25-OH Vitamin D Total TSH Free T4 Ur Specific [place] Urine Protein Urine Glucose (UA) Urine Blood Negative Urine Nitrite Positive H Ur Leukocyte Esterase Negative 04/23/23 04/23/23 04/23/23 09:34 09:34 09:34 WBC Hgb Hct Plt Count Sodium Potassium Creatinine Estimated GFR Fasting Glucose Hemoglobin A1c % Calcium AST ALT Triglycerides Cholesterol 206 H LDL Cholesterol, Calc 141 H HDL Cholesterol 39 L 25-OH Vitamin D Total 54.0 TSH 9.41 H Free T4 0.98 Ur Specific [place] Urine Protein Urine Glucose (UA) Urine Blood Urine Nitrite Ur Leukocyte Esterase Assessment and Plan Assessment & Plan (1) Pure hypercholesterolemia: Code(s): E78.00 - Pure hypercholesterolemia, unspecified Plan: Results of her labs done yesterday reviewed and discussed with patient - cautioned that her cholesterol levels have all gone up significantly from previous Reinforced low cholesterol diet Patient states that she was forgetting to take her cholesterol medication often as she was previously taking it at night States that she has since switched it over to AM dosing together with her other meds and should be able to take this regularly now without forgetting it Admits that she was also eating a lot of ice cream over the past few months and will try to cut back or stop this now Continue Simvastatin 10 mg QD for now Will recheck her labs and fasting lipids in 4 months for follow up (2) Benign essential hypertension: Code(s): I10 - Essential (primary) hypertension Plan: Reinforced low sodium diet - goal is systolic BP of at least 130 to 140 mm or less Continue Valsartan-HCT 160-12.5 mg QD - Rx refilled Patient is reminded to continue monitoring her BP regularly/closely (3) Acquired hypothyroidism: Code(s): E03.9 - Hypothyroidism, unspecified Plan: Patient's TSH level was slightly elevated at her last visit and has gone up further on her recent labs Will now increase her Levothyroxine from 88 mcg to 100 mcg QD Will continue to monitor her TFTs regularly (4) Impaired fasting glucose: Code(s): R73.01 - Impaired fasting glucose Plan: Reinforced low calorie diet/exercise as tolerated Her FBS is again elevated at 109 mg/dl on her labs done yesterday; HgbA1c was normal at 5.7% when checked last year Will continue to monitor her glycemic control closely (5) Vitamin D deficiency: Code(s): E55.9 - Vitamin D deficiency, unspecified Plan: Continue Vitamin D3 1000 units QD (6) Anxiety: Code(s): F41.9 - Anxiety disorder, unspecified Plan: Continue Escitalopram 10 mg QD She self-discontinued Rx a couple of years ago and did well without Rx for a while but her anxiety increased again a few months ago and she asked to be started back on her med; has been doing well since (7) Obesity (BMI 30-39.9): Code(s): E66.9 - Obesity, unspecified Plan: Reinforced diet/exercise as tolerated/lose weight Plan Follow up in 4 months Orders: Orders Hemoglobin A1c 4 Months R73.01 - Impaired fasting glucose Complete Blood Count Auto Diff 4 Months D64.9 - Anemia, unspecified Thyroid Stimulating Hormone 4 Months E03.9 - Hypothyroidism, unspecified Lipid Panel 4 Months E78.00 - Pure hypercholesterolemia, unspecified Comprehensive [place]. Panel Fast 4 Months E78.00 - Pure hypercholesterolemia, unspecified Free T4 (Free Thyroxine) 4 Months E03.9 - Hypothyroidism, unspecified Vitamin D 25-OH Total 4 Months E55.9 - Vitamin D deficiency, unspecified UA CC w/rflx Micro + Cult 4 Months R30.0 - Dysuria Medications: Changed From simvastatin 10 mg PO BEDTIME 90 tabs 1RF To simvastatin 10 mg PO BEDTIME 90 days 90 tabs 1RF From levothyroxine 88 mcg PO DAILY 90 days 90 tabs 0RF E03.9 - Hypothyroidism, unspecified To levothyroxine 100 mcg PO DAILY 90 days 90 tabs 1RF E03.9 - Hypothyroidism, unspecified Refilled valsartan-hydrochlorothiazide 160-12.5 mg 1 tab PO DAILY 90 days 90 tabs 1RF Coding Level of Care Code Est Pt Level 4 (38983) Diagnoses Pure hypercholesterolemia E78.00 Benign essential hypertension I10 Acquired hypothyroidism E03.9 Impaired fasting glucose R73.01 Vitamin D deficiency E55.9 Anxiety F41.9 Obesity (BMI 30-39.9) E66.9 Additional Codes KARINA-7 Assessment Billing - KARINA-7 Assessment Tool: KARINA-7 Assessment 49314 ([id number])
== END 2023-04-24 10:22 | disposition home or self-care (01) ==
PROVIDERS: PCP Internal Medicine; Visit Provider Internal Medicine
DX: E78.00 Pure hypercholesterolemia, unspecified (principal); E66.9 Obesity, unspecified; I10 Essential (primary) hypertension; Z68.32 Body mass index [BMI] 32.0-32.9, adult; E03.9 Hypothyroidism, unspecified; R73.01 Impaired fasting glucose; E55.9 Vitamin D deficiency, unspecified; F41.9 Anxiety disorder, unspecified
CPT/HCPCS: 99214

== ENCOUNTER 2023-08-26 09:04 | Outpatient (REF) | payer MEDICARE, MEDICAID, SELFPAY ==
[2023-08-26 09:21] LABS: MANUAL DIFF FLAG NO
[2023-08-26 09:57] LABS: Appearance Urine Cloudy; Color Urine Dark Yellow; Glucose Urine UA Negative (Negative); Leukocyte Esterase Urine Small (1+) (Negative); Nitrite Urine Negative (Negative); PH 6.5 (5.0-9.0); Specific Gravity - Urine 1.015 (1.005-1.025); UMIC TRIGGER UACC YES; Urine Blood Negative (Negative); Urine Ketones Trace mg/dL (Negative); Urine Protein Trace mg/dL (Neg-Trace)
[2023-08-26 09:57] LABS: Basophils Absolute Auto 0.1 X10*3/uL (0.0-0.2); Basophils Percent Auto 1.4 % (0-2); Eosinophils Absolute Auto 0.1 X10*3/uL (0.0-0.4); Eosinophils Percent Auto 2.1 % (0-4); Hematocrit 43.2 % (37.0-47.0); Hemoglobin 14.3 g/dl (12.0-16.0); Imm Gran Abs Auto 0.04 X10*3/uL (0.00-0.03); Imm Gran Pct Auto 0.6 % (0.0-0.4); Lymphocytes Absolute Auto 1.6 X10*3/uL (1.2-4.9); Lymphocytes Percent Auto 23.9 % (20-40); Mean Corpuscular HGB Conc 33.1 g/dl (31.0-35.0); Mean Corpuscular Hemoglobin 29.7 pg (27.0-33.0); Mean Corpuscular Volume 89.6 fL (80.0-98.0); Mean Platelet Volume 10.1 fL (9.4-12.3); Monocytes Absolute Auto 0.4 X10*3/uL (0.1-1.2); Monocytes Percent Auto 6.7 % (2-11); Neutrophils Absolute Auto 4.3 x10*3/uL (2.0-8.3); Neutrophils Percent Auto 65.3 % (45-73); Platelet Count 307 X10*3/uL (160-400); Red Blood Count 4.82 X10*6/uL (4.20-5.50); Red Cell Distribution Width 13.3 % (11.0-16.0); White Blood Count 6.5 X10*3/uL (4.8-10.8)
[2023-08-26 10:05] LABS: Estimated Average Glucose 117 mg/dL; Hemoglobin A1c % 5.7 % (<6.0)
[2023-08-26 10:11] LABS: Bacteria Urine 1+ (None Seen); Hyaline Casts Urine 0-2 /LPF (0-2); UACC Culture Trigger YES; WBC Urine 0-5 /HPF (0-5)
[2023-08-26 10:12] LABS: RBC Urine 0-2 /HPF (0-2)
[2023-08-26 10:28] LABS: Alanine Aminotransferase 17 U/L (0-31); Albumin Level 4.3 g/dL (3.5-5.0); Alkaline Phosphatase 61 U/L (39-117); Anion Gap 13 (12-20); Aspartate Amino Transferase 20 U/L (5-31); Bilirubin Total 0.9 mg/dL (0.0-1.0); Blood Urea Nitrogen 14 mg/dL (9-16); Carbon Dioxide 28 mmol/L (22-29); Chloride 102 mmol/L (96-108); Cholesterol 162 mg/dL (<200); Estimated Glomerular Filt Rate 53; Glucose Fasting 115 mg/dL (60-99); HDL Cholesterol 34 mg/dL (>40); LDL Cholesterol Calculated 99 mg/dL (<100); Potassium 3.9 mmol/L (3.3-5.1); Sodium 139 mmol/L (135-145); Total Protein 7.5 g/dL (6.5-8.0); Triglycerides 148 mg/dL (<150)
[2023-08-26 10:47] LABS: Free T4 (Free Thyroxine) 1.09 ng/dL (0.71-1.85); Thyroid Stimulating Hormone 6.33 uIU/mL (0.32-4.0); Vitamin D 25-OH Total 50.8 ng/mL (>30)
== END 2023-08-26 09:05 | disposition home or self-care (01) ==
LOC: HO.LAB 09:04
PROVIDERS: PCP Internal Medicine; Visit Provider Internal Medicine
DX: E55.9 Vitamin D deficiency, unspecified (principal); R73.01 Impaired fasting glucose; D64.9 Anemia, unspecified; E78.00 Pure hypercholesterolemia, unspecified; E03.9 Hypothyroidism, unspecified
CPT/HCPCS: 36415; 80053; 80061; 81001; 82306; 83036; 84439; 84443; 85025; 87086

== ENCOUNTER 2023-08-28 09:35 | Outpatient (AMB) | payer MEDICARE, SELFPAY ==
--- NOTE | 2023-08-28 09:39 | MHC.PC.OV ---
Vital Signs 08/28/23 09:41 Height 5 ft 4 in Weight 189 lb BMI 32.4 BP 130/86 Blood Pressure Location Lt brachial Position Sitting Pulse 72 Pulse Source Pulse Oximeter Pulse Oximetry (%) 97 Oxygen Delivery Method Room Air Intake Visit Reasons: hyperlipidemia, HTN, hypothyroidism, IFG Intake Note: Patient is here to follow up on HTN, HLD, Hypothyroidism, IFG. Instrument Lens Generator Required: No Collar Starcher: Not Required per policy Accompanied by: Self / Same As Patient Allergies fluoxetine Adverse Reaction (Unknown, Verified 08/28/23 10:06) increasing anxiety and jitteriness Medication List - Last Reconciled 08/28/23 by Kit Turner MD cholecalciferol (vitamin D3) 50 mcg PO DAILY escitalopram oxalate 10 mg PO DAILY 90 days levothyroxine 100 mcg PO DAILY 90 days simvastatin 10 mg PO BEDTIME 90 days valsartan-hydrochlorothiazide 160-12.5 mg 1 tab PO DAILY 90 days Tobacco use date assessed: 08/28/23 Fall risk assessment: No Falls in past year Last assessed Fall Risk: 08/28/23 Dental Screening Dental Screen Date: 04/24/23 HPI hyperlipidemia, HTN, hypothyroidism, IFG HPI Details Patient comes in today for her follow up visit States that she has been experiencing increased nasal and sinus congestion for months now Relates (+) on and off ear pain/discomfort and states that she often has increased sinus pressure and sometimes pain lately; reports (+) frequent pain and pressure behind her eyes as well She denies any bloody nasal discharge and denies any fever or sore throat States that she has tried taking a few OTC sinus/cold meds over the past few weeks with temporary and mild relief States that she feels okay otherwise She denies any headaches or dizziness Denies any chest pains, no SOB No nausea/vomiting, no abdominal pain No change in bowel habits noted She had her follow up labs done a couple of days ago - to discuss her results COUNTS INCLUDE 234 BEDS AT [facility] Medical History Dermatitis Knee pain Obesity (BMI 30-39.9) Anxiety Vitamin D deficiency Impaired fasting glucose Acquired hypothyroidism Pure hypercholesterolemia Benign essential hypertension Surgical History History of surgery Family History Father Stroke Mother Hypertension TIA (transient ischemic attack) Sister Hodgkin disease Other Mental health problem Social History Housing: House Alcohol intake: never Patient Tobacco Use Status: Former Tobacco user e-Cigarette/Vaping Use: Never Used Second Hand Smoke Exposure: Yes service: No Current occupational status: retired Cognitive needs: No Hearing needs: No Vision needs: Yes (glasses) Questionnaire Thrive Questionnaire Date Thrive assessed: 04/24/23 KARINA-7 AMB Questionnaire KARINA-7 Date KARINA - 7 assessed: 04/24/23 Source: Developed by Drs. Girma Holcomb, Huong Pugh, Damien Mccabe and colleagues, with an educational sheila from [employer]. Review of Systems Const Denies chills, Denies fatigue, Denies fever(s) and Denies headache(s) ENT Denies dysphagia, Denies dizziness, Denies otalgia (but reports (+) ear discomfort/pressure often lately), Denies headache(s), Reports nasal congestion (frequent), Denies neck pain, Denies odynophagia, Reports sinus pain (occasionally), Reports sinus pressure (frequent) and Denies sore throat Card Denies chest pain, Denies palpitations and Denies dyspnea Resp Denies cough and Denies dyspnea GI Denies abdominal pain, Denies constipation, Denies dysphagia, Denies heartburn, Denies diarrhea, Denies nausea, Denies odynophagia and Denies vomiting Denies difficulty voiding, Denies nocturia, Denies dysuria and Denies urinary urgency Musc Denies back pain, Reports arthralgias (on and off over the knees) and Denies neck pain Skin/Breast Denies rash Neuro Denies dizziness and Denies headache(s) Psych Reports anxiety (better controlled on Rx) Endo Denies fatigue and Denies palpitations Physical exam (Primary Care) Vital Signs: Last Vital Signs Pulse 72 08/28/23 09:41 BP 130/86 08/28/23 09:41 Pulse Ox 97 08/28/23 09:41 Oxygen Delivery Method Room Air 08/28/23 09:41 BMI result Body Mass Index 32.4 Tobacco/Smoking Status: Tobacco use Status Tobacco use date assessed 08/28/23 08/28/23 09:43 Patient Tobacco Use Status Former Tobacco user 08/28/23 09:43 e-Cigarette/Vaping Use Never Used 08/28/23 09:43 Thrive Assessment: Date of Thrive Assessment Date Thrive assessed 04/24/23 08/28/23 09:43 Const General: no acute distress and alert HENMT Ears: EAC's normal and TM abnormal bulging bilateral; not with effusion Face and sinus: Yes sinus tenderness (bilateral) Throat: Yes posterior oropharynx normal and Yes tonsils normal (no TP congestion noted) Neck Neck: Yes no lymphadenopathy and Yes supple Thyroid: Thyroid normal Resp Auscultation: clear to auscultation bilaterally, no rales and no wheezes Cardio Rate: regular rate Rhythm: regular rhythm Heart sounds: no murmurs GI Palpation (GI): Soft to palpation and nontender Auscultation: normal bowel sounds Skin Rashes: no rashes Extrem General: Yes no clubbing, cyanosis or edema Results Reviewed Results Reviewed: Laboratory Tests 08/26/23 08/26/23 09:12 09:19 WBC 6.5 Hgb 14.3 Hct 43.2 Plt Count 307 Sodium 139 Potassium 3.9 Creatinine 1.02 Estimated GFR 53 Fasting Glucose 115 H Hemoglobin A1c % 5.7 Calcium 10.0 AST 20 ALT 17 Triglycerides 148 Cholesterol 162 LDL Cholesterol, Calc 99 HDL Cholesterol 34 L 25-OH Vitamin D Total 50.8 TSH 6.33 H Free T4 1.09 Ur Specific [place] 1.015 Urine Protein Trace Urine Glucose (UA) Negative Urine Blood Negative Urine Nitrite Negative Ur Leukocyte Esterase Small (1+) H Assessment and Plan Assessment & Plan (1) Pure hypercholesterolemia: Code(s): E78.00 - Pure hypercholesterolemia, unspecified Plan: Results of her labs done a couple of days reviewed and discussed with patient - she is advised that her cholesterol levels have improved significantly from previous States that she is now taking her cholesterol medication daily and has stopped eating all of her favorite ice cream Reinforced low cholesterol diet Continue Simvastatin 10 mg QD Will recheck her labs and fasting lipids in 4 months for follow up (2) Benign essential hypertension: Code(s): I10 - Essential (primary) hypertension Plan: Reinforced low sodium diet - goal is systolic BP of at least 130 to 140 mm or less Continue Valsartan-HCT 160-12.5 mg QD Patient is reminded to continue monitoring her BP regularly (3) Acquired hypothyroidism: Code(s): E03.9 - Hypothyroidism, unspecified Plan: Patient's TSH level was still slightly elevated on her recent labs but this has decreased from previous; free T4 is normal Continue Levothyroxine 100 mcg QD Will continue to monitor her TFTs regularly - will recheck them in 4 months (4) Impaired fasting glucose: Code(s): R73.01 - Impaired fasting glucose Plan: Reinforced low calorie diet/exercise as tolerated Her FBS is again elevated at 115 mg/dl on her labs done a couple of days ago but HgbA1c has remained normal at 5.7% Will continue to monitor her glycemic control closely (5) Vitamin D deficiency: Code(s): E55.9 - Vitamin D deficiency, unspecified Plan: Continue Vitamin D3 1000 units QD (6) Chronic sinusitis: Code(s): J32.9 - Chronic sinusitis, unspecified Qualifiers: Sinusitis location: unspecified location Qualified Code(s): J32.9 - Chronic sinusitis, unspecified Plan: Will send her for sinus x-rays for further evaluation Will start her in the meantime empirically on Augmentin 875 mg BID x 10 days (7) Anxiety: Code(s): F41.9 - Anxiety disorder, unspecified Plan: Continue Escitalopram 10 mg QD She self-discontinued Rx a couple of years ago and did well without Rx for a while but her anxiety increased again a few months ago and she asked to be started back on her med; has been doing well since (8) Obesity (BMI 30-39.9): Code(s): E66.9 - Obesity, unspecified Plan: Reinforced diet/exercise as tolerated/lose weight Plan Follow up in 4 months Orders: Orders Complete Blood Count Auto Diff 4 Months D64.9 - Anemia, unspecified Comprehensive [place]. Panel Fast 4 Months E78.00 - Pure hypercholesterolemia, unspecified Free T4 (Free Thyroxine) 4 Months E03.9 - Hypothyroidism, unspecified Thyroid Stimulating Hormone 4 Months E03.9 - Hypothyroidism, unspecified UA CC w/rflx Micro + Cult 4 Months R30.0 - Dysuria Vitamin D 25-OH Total 4 Months E55.9 - Vitamin D deficiency, unspecified XR sinus min 3V Today J32.9 - Chronic sinusitis, unspecified Lipid Panel 4 Months E78.00 - Pure hypercholesterolemia, unspecified Hemoglobin A1c 4 Months R73.01 - Impaired fasting glucose Medications: New amoxicillin-pot clavulanate 875-125 mg 1 tab PO BID 10 days 20 tabs 0RF J32.9 - Chronic sinusitis, unspecified Coding Level of Care Code Est Pt Level 4 (58193) Complex EM visit Add On G2211 Diagnoses Pure hypercholesterolemia E78.00 Benign essential hypertension I10 Acquired hypothyroidism E03.9 Impaired fasting glucose R73.01 Vitamin D deficiency E55.9 Chronic sinusitis, unspecified location J32.9 Sinusitis location: unspecified location Anxiety F41.9 Obesity (BMI 30-39.9) E66.9
[2023-08-28 09:41] VITALS: BP 130/86; PULSE 72; O2SAT 97; BMI 32.4
== END 2023-08-28 10:26 | disposition home or self-care (01) ==
PROVIDERS: PCP Internal Medicine; Visit Provider Internal Medicine
DX: E78.00 Pure hypercholesterolemia, unspecified (principal); E66.9 Obesity, unspecified; I10 Essential (primary) hypertension; Z68.32 Body mass index [BMI] 32.0-32.9, adult; E03.9 Hypothyroidism, unspecified; R73.01 Impaired fasting glucose; E55.9 Vitamin D deficiency, unspecified; J32.9 Chronic sinusitis, unspecified; F41.9 Anxiety disorder, unspecified
CPT/HCPCS: 99214; G2211

== ENCOUNTER 2023-08-28 10:30 | Outpatient (REF) | payer MEDICARE, OTHER, SELFPAY ==
--- NOTE | ~2023-08-28 | XR_ITS ---
EXAMINATION: XR SINUSES CLINICAL INFORMATION: Chronic sinusitis. COMPARISON: None available. TECHNIQUE: 6 views of the sinuses. FINDINGS: No gross air-fluid levels in the maxillary sinuses. Frontal sinuses appear aerated. Mild rightward deviation of the nasal septum. XR/XR sinus min 3V IMPRESSION: 1. No gross air-fluid levels in the maxillary sinuses. Frontal sinuses appear aerated. 2. Mild rightward deviation of the nasal septum. 3. Dedicated CT scan of the paranasal sinuses recommended if there is concern for sinus disease, facial bone fracture or other intracranial pathology as CT scan is much more sensitive for evaluation of intracranial pathology.
== END 2023-08-28 10:31 | disposition home or self-care (01) ==
LOC: HO.XRAY 10:30
PROVIDERS: PCP Internal Medicine; Visit Provider Internal Medicine
DX: J32.9 Chronic sinusitis, unspecified (principal)
CPT/HCPCS: 70220

== ENCOUNTER 2024-01-19 09:35 | Outpatient (REF) | payer MEDICARE, MEDICAID, SELFPAY ==
[2024-01-19 10:14] LABS: MANUAL DIFF FLAG NO
[2024-01-19 10:58] LABS: Appearance Urine Clear; Color Urine Dark Yellow; Glucose Urine UA Negative (Negative); Leukocyte Esterase Urine Small (1+) (Negative); Nitrite Urine Negative (Negative); PH 6.5 (5.0-9.0); Specific Gravity - Urine 1.025 (1.005-1.025); UMIC TRIGGER UACC YES; Urine Blood Negative (Negative); Urine Ketones Trace mg/dL (Negative); Urine Protein Trace mg/dL (Neg-Trace)
[2024-01-19 11:06] LABS: Bacteria Urine None Seen (None Seen); Hyaline Casts Urine 0-2 /LPF (0-2); RBC Urine 0-2 /HPF (0-2); UACC Culture Trigger YES; WBC Urine 0-5 /HPF (0-5)
[2024-01-19 11:26] LABS: Basophils Absolute Auto 0.1 X10*3/uL (0.0-0.2); Basophils Percent Auto 1.2 % (0-2); Eosinophils Absolute Auto 0.2 X10*3/uL (0.0-0.4); Eosinophils Percent Auto 2.4 % (0-4); Hematocrit 41.8 % (37.0-47.0); Imm Gran Abs Auto 0.02 X10*3/uL (0.00-0.03); Imm Gran Pct Auto 0.3 % (0.0-0.4); Lymphocytes Absolute Auto 1.2 X10*3/uL (1.2-4.9); Lymphocytes Percent Auto 17.7 % (20-40); Mean Corpuscular HGB Conc 33.5 g/dl (31.0-35.0); Mean Corpuscular Hemoglobin 30.5 pg (27.0-33.0); Mean Corpuscular Volume 91.1 fL (80.0-98.0); Mean Platelet Volume 10.6 fL (9.4-12.3); Monocytes Absolute Auto 0.4 X10*3/uL (0.1-1.2); Monocytes Percent Auto 5.8 % (2-11); Neutrophils Absolute Auto 4.9 x10*3/uL (2.0-8.3); Neutrophils Percent Auto 72.6 % (45-73); Platelet Count 328 X10*3/uL (160-400); Red Blood Count 4.59 X10*6/uL (4.20-5.50); Red Cell Distribution Width 13.2 % (11.0-16.0); White Blood Count 6.7 X10*3/uL (4.8-10.8)
[2024-01-19 11:31] LABS: Estimated Average Glucose 117 mg/dL; Hemoglobin A1C 144.3504 umol/L; Hemoglobin A1c % 5.7 % (<6.0); Total Hemoglobin (HGBA1C) 3685.5061 umol/L
[2024-01-19 12:00] LABS: Alanine Aminotransferase 27 U/L (0-31); Albumin Level 4.2 g/dL (3.5-5.0); Alkaline Phosphatase 70 U/L (39-117); Anion Gap 11 (12-20); Aspartate Amino Transferase 26 U/L (5-31); Bilirubin Total 0.6 mg/dL (0.0-1.0); Blood Urea Nitrogen 14 mg/dL (9-16); Calcium 9.3 mg/dL (8.4-10.2); Carbon Dioxide 29 mmol/L (22-29); Chloride 103 mmol/L (96-108); Cholesterol 122 mg/dL (<200); Estimated Glomerular Filt Rate > 60; Glucose Fasting 113 mg/dL (60-99); HDL Cholesterol 34 mg/dL (>40); LDL Cholesterol Calculated 68 mg/dL (<100); Potassium 4.3 mmol/L (3.3-5.1); Sodium 139 mmol/L (135-145); Total Protein 7.3 g/dL (6.5-8.0); Triglycerides 102 mg/dL (<150)
[2024-01-19 12:04] LABS: Free T4 (Free Thyroxine) 1.17 ng/dL (0.71-1.85); Thyroid Stimulating Hormone 4.02 uIU/mL (0.32-4.0); Vitamin D 25-OH Total 53.4 ng/mL (>30)
== END 2024-01-19 09:36 | disposition home or self-care (01) ==
LOC: HO.LAB 09:35
PROVIDERS: PCP Internal Medicine; Visit Provider Internal Medicine
DX: E78.00 Pure hypercholesterolemia, unspecified (principal); E03.9 Hypothyroidism, unspecified; R73.01 Impaired fasting glucose; D64.9 Anemia, unspecified; E55.9 Vitamin D deficiency, unspecified; R30.0 Dysuria
CPT/HCPCS: 36415; 80053; 80061; 81001; 82306; 83036; 84439; 84443; 85025; 87086

== ENCOUNTER 2024-01-27 07:57 | Outpatient (AMB) | payer MEDICARE, MEDICAID, SELFPAY ==
[2024-01-27 08:09] VITALS: BP 136/68; PULSE 79; O2SAT 97; BMI 31.9
--- NOTE | 2024-01-27 08:09 | A.OFFPC_ITS ---
Vital Signs 01/27/24 08:09 Height 5 ft 4 in Weight 186 lb BMI 31.9 BP 136/68 Blood Pressure Location Lt brachial Position Sitting Pulse 79 Pulse Source Pulse Oximeter Pulse Oximetry (%) 97 Oxygen Delivery Method Room Air Intake Visit Reasons: [facility] 01/04 Allergies fluoxetine Adverse Reaction (Unknown, Verified 01/27/24 08:14) increasing anxiety and jitteriness Tobacco use date assessed: 01/27/24 Fall risk assessment: No Falls in past year Last assessed Fall Risk: 01/27/24 Dental Screening Dental Screen Date: 04/24/23 HPI HPI Comments History of Present Illness Details 73 y/o female patient who presents to e clinic today for HDF. She was admitted at [facility] in [place] on 12/31/23 due to AF with RVR NSTEMI. She did have Cardiac Cath with RCA stented on 01/04/24 and discharged home 01/05/24 on stable condition. She was started on Plavix 75 mg, Apixaban 5 mg, Metoprolol 25 mg, Atorvastatin 40 mg and Diovan-HCT 80/125 mg. Pt will need referral to cardiology. [facility] Medical History (Updated 01/27/24 @ 09:33 by Pastora Soto NP) Atrial fibrillation with rapid ventricular response Dermatitis Knee pain Obesity (BMI 30-39.9) Anxiety Vitamin D deficiency Impaired fasting glucose Acquired hypothyroidism Pure hypercholesterolemia Benign essential hypertension Surgical History (Updated 01/27/24 @ 09:33 by Pastora Soto NP) S/P right coronary artery (RCA) stent placement Status post cardiac catheterization History of surgery Family History Father Stroke Mother Hypertension TIA (transient ischemic attack) Sister Hodgkin disease Other Mental health problem Social History Housing: House Alcohol intake: never Patient Tobacco Use Status: Former Tobacco user Tobacco use type: Cigarette e-Cigarette/Vaping Use: Never Used Second Hand Smoke Exposure: Yes service: No Current occupational status: retired Cognitive needs: No Hearing needs: No Vision needs: Yes (glasses) Questionnaire PHQ-9 Over the last 2 weeks, how often have you been bothered by any of the following problems? 1. Little interest or pleasure in doing things: not at all 2. Feeling down, depressed, or hopeless: not at all 3. Trouble falling or staying asleep, or sleeping too much: not at all 4. Feeling tired or having little energy: not at all 5. Poor appetite or overeating: not at all 6. Feeling bad about yourself - or that you are a failure or have let yourself or your family down: not at all 7. Trouble concentrating on things, such as reading the newspaper or watching television: not at all 8. Moving or speaking so slowly that other people could have noticed. Or the opposite - being so fidgety or restless that you have been moving around a lot more than usual: not at all 9. Thoughts that you would be better off or of hurting yourself in some way: not at all Total score: 0 Depression Screening Interpretation: Negative Depression Screening Done: Yes 52250 - PHQ-9 Billing: Yes Source: Developed by Drs. Girma Holcomb, Huong Pugh, Damien Mccabe and colleagues, with an educational sheila from [employer]. Thrive Questionnaire Date Thrive assessed: 04/24/23 AUDIT C Alcohol Use Questionnaire (AUDIT-C) 1. How often do you have a drink containing alcohol?: Never 3. How often do you have six or more drinks on one occasion?: Never Total Score: 0 Score Reviewed/Action Taken: Yes KARINA-7 AMB Questionnaire KARINA-7 Date KARINA - 7 assessed: 04/24/23 Source: Developed by Drs. Girma Holcomb, Damien Cardona and colleagues, with an educational sheila from [employer]. Physical exam (Primary Care) Vital Signs: Last Vital Signs Pulse 79 01/27/24 08:09 BP 136/68 01/27/24 08:09 Pulse Ox 97 01/27/24 08:09 Oxygen Delivery Method Room Air 01/27/24 08:09 BMI result Body Mass Index 31.9 Tobacco/Smoking Status: Tobacco use Status Tobacco use date assessed 01/27/24 01/27/24 08:19 Patient Tobacco Use Status Former Tobacco user 01/27/24 08:19 Tobacco use type Cigarette 01/27/24 08:19 e-Cigarette/Vaping Use Never Used 01/27/24 08:19 PHQ-9: PHQ-9 Score PHQ-9: Total score 0 01/27/24 09:33 Depression Screening Interpretation: Negative Thrive Assessment: Date of Thrive Assessment Date Thrive assessed 04/24/23 01/27/24 08:19 Const General: cooperative and no acute distress Nutritional Appearance: overweight Orientation/consciousness: patient oriented x3 Resp Effort & Inspection: normal respiratory effort Auscultation: clear to auscultation bilaterally Cardio Heart sounds: S1 normal heart sound present and S2 normal heart sound present Neuro General: patient oriented x3 Coding Level of Care Code Est Pt Level 4 (27271) Diagnoses Atrial fibrillation with rapid ventricular response I48.91 Status post cardiac catheterization Z98.890 S/P right coronary artery (RCA) stent placement Z95.5 Additional Codes PHQ-9 - 26501 - PHQ-9 Billing: Yes ([id number]) Time Spent (min) 25 Assessment & Plan Assessment & Plan (1) Atrial fibrillation with rapid ventricular response: Code(s): I48.91 - Unspecified atrial fibrillation Category: Medical Plan: Referred to Cardiology. (2) Status post cardiac catheterization: Code(s): Z98.890 - Other specified postprocedural states Category: Surgical Plan: Referred to Cardiology. (3) S/P right coronary artery (RCA) stent placement: Code(s): Z95.5 - Presence of coronary angioplasty implant and graft Category: Surgical Plan: Referred to Cardiology. Orders: Referrals Cardiology Referral I48.91 - Unspecified atrial fibrillation, Z95.5 - Presence of coronary angioplasty implant and graft, Z98.890 - Other specified postprocedural states Medications: New apixaban (Eliquis) 5 mg PO BID 180 tabs 0RF I48.91 - Unspecified atrial fibrillation metoprolol succinate ER 25 mg PO DAILY 90 tabs 0RF I10 - Essential (primary) hypertension, I48.91 - Unspecified atrial fibrillation, Z95.5 - Presence of coronary angioplasty implant and graft valsartan-hydrochlorothiazide 80-12.5 mg 1 tab PO DAILY 90 tabs 0RF I10 - Essential (primary) hypertension, I48.91 - Unspecified atrial fibrillation, Z9 5.5 - Presence of coronary angioplasty implant and graft atorvastatin 40 mg PO DAILY 90 tabs 0RF E78.00 - Pure hypercholesterolemia, unspecified clopidogrel 75 mg PO DAILY 90 tabs 0RF Z95.5 - Presence of coronary angioplasty implant and graft, Z98.890 - Other specified postprocedural states Discontinued simvastatin Discontinued Reason: Patient Completed Course 10 mg PO BEDTIME 90 days 90 tabs 1RF
== END 2024-01-27 08:43 | disposition home or self-care (01) ==
PROVIDERS: PCP Internal Medicine; Visit Provider Nurse Practitioner Family
DX: I48.91 Unspecified atrial fibrillation (principal); Z98.890 Other specified postprocedural states; Z95.5 Presence of coronary angioplasty implant and graft

== ENCOUNTER → 2024-01-27 07:57 | Outpatient (BNVA) | payer MEDICARE, MEDICAID, SELFPAY | PROVIDERS: PCP Internal Medicine; Visit Provider Nurse Practitioner Family | DX: I48.91 Unspecified atrial fibrillation (principal); Z95.5 Presence of coronary angioplasty implant and graft; Z98.890 Other specified postprocedural states | CPT/HCPCS: 96127; 99212 ==

== ENCOUNTER 2024-02-03 10:44 | Outpatient (REF) | payer MEDICARE, MEDICAID, SELFPAY ==
--- NOTE | ~2024-02-03 | MM_ITS ---
EXAMINATION: MM SCREENING DIGITAL BREAST TOMOSYNTHESIS, BILATERAL CLINICAL INFORMATION: Screening. Asymptomatic. COMPARISON: Mammography: Comparison is made with available priors TECHNIQUE: Digital breast mammography with tomosynthesis is performed in both the craniocaudal and mediolateral oblique views along with computer-aided detection (CAD). FINDINGS: The breasts are heterogeneously dense, which may obscure small masses (ACR BI-RADS breast composition Category c). Calcifications lower inner left breast stable dating back to 2020. There are no significant masses, abnormal calcifications, or other abnormalities. MM/MM tomosynthesis screening BI IMPRESSION: No mammographic evidence of malignancy. ASSESSMENT: BI-RADS BI-RADS 2 - Benign Findings RECOMMENDATION: Routine annual mammography screening. 1 year F/U This examination should not preclude the clinical evaluation of a suspicious palpable abnormality. This patient's information was entered into a reminder system with a target due date for their next mammogram. Electronically signed by: Domitila Brink DO 02/09/2024 03:07 PM MAX
--- OUTSIDE RECORDS SUMMARY | 2024-02-09 17:45 | XMS_ITS | Patient Health Record ---
Author Organization [facility] ET Address [address] [place] [id number] Care Team Providers Care Job Order Clerk Name Role Phone Smith Turner MD Primary Care Provider Devon Hoff Unavailable [phone] Neeru Castellanos Unavailable [phone] Janine Dowell Unavailable Allergies No Known Allergies Reason For Referral No Information Medications Medication SIG (Take, Route, Frequency, Duration) Notes Start Date End Date Status Valsartan-hydroCHLOROt hiazide 80-12.5 MG TAKE 1 TABLET BY MOUTH DAILY Oral once a day for 90 days p/u in 1 week Active Metoprolol Succinate ER 25 MG 1 tablet Oral once a day for 90 days Will be picking up in 1 week -currently in [place] Active Atorvastatin Calcium 40 MG 1 tablet Oral once a day for 90 days p/u 1 week in [place] Active Lexapro 10 MG 1 tablet Orally Once a day Active Levothyroxine Sodium 100 MCG 1 tablet in the morning on an empty stomach Orally Once a day Active Eliquis 5 MG TAKE 1 TABLET (5 MG) 2 TIMES DAILY BY MOUTH INDICATIONS: NON-VALVULAR ATRIAL FIBRILLATION Oral 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 Clopidogrel Bisulfate 75 MG 1 tablet Oral once a day for 90 days will p/u in 1 week Active Social History Tobacco Use: Social History Observation Description Date Details (start date - stop date) Never Smoker NA - NA Tobacco Control (Standard) Question Answer Notes Tobacco use: Nonsmoker Problems Problem Type SNOMED Code ICD Code Onset Dates Problem Status W/U Status Risk Notes Problem 21100138 Primary hypertension (I10) Active confirmed Problem 06155880 Coronary artery disease involving platinum coronary artery of platinum heart without angina pectoris (I25.10) Active confirmed Problem Atrial fibrillation (35277218) AF (paroxysmal atrial fibrillation) (I48.0) Active confirmed Problem 09391491 Atrial fibrillation, unspecified type (I48.91) Active confirmed Problem 737808654 Stented coronary artery (Z95.5) Active confirmed Problem 30062964 NSTEMI (non-ST elevated myocardial infarction) (I21.4) Active confirmed Problem Sarcoidosis (92595927) Sarcoid (D86.9) Active confirmed Problem Accelerated essential hypertension (05527178) Accelerated essential hypertension (I10) Active confirmed Problem Acute non-ST segment elevation myocardial infarction (519101715) Acute [place], subendocardial (I21.4) Active confirmed Problem Atherosclerotic heart disease of platinum coronary artery without angina pectoris (659710565925135) 2-vessel coronary artery disease (I25.10) Active confirmed Vital Signs Heart Rate 65 /min 01/08/2024 Oximetry 98 % 01/08/2024 Blood pressure diastolic 80 mm Hg 01/08/2024 Weight-kg 85.28 kg 01/08/2024 Blood pressure systolic 122 mm Hg 01/08/2024 Weight 188 lbs 01/08/2024 Encounters Encounter Location Date Provider Diagnosis [facility] [address] [address] 01/08/2024 Neeru Castellanos NSTEMI (non-ST elevated myocardial infarction) I21.4 ; Atrial fibrillation, unspecified type I48.91 ; Coronary artery disease involving platinum coronary artery of platinum heart without angina pectoris I25.10 ; Stented coronary artery Z95.5 and Primary hypertension I10 Assessments Encounter Date Diagnosis (ICD Code) Assessment Notes Treatment Notes Treatment Clinical Notes Section Notes 01/08/2024 Atrial fibrillation, unspecified type (ICD-10 - I48.91) 01/08/24 (LT PA-C): F/U from hospital -doing well -going back home to [place] next week-will be establishing cardiology care there. Reviewed recs and filled all meds 01/08/2024 NSTEMI (non-ST elevated myocardial infarction) (ICD-10 - I21.4) 01/08/24 (LT PA-C): F/U from hospital -doing well -going back home to [place] next week-will be establishing cardiology care there. Reviewed recs and filled all meds 01/08/2024 Coronary artery disease involving platinum coronary artery of platinum heart without angina pectoris (ICD-10 - I25.10) 01/08/24 (LT PA-C): F/U from hospital -doing well -going back home to [place] next week-will be establishing cardiology care there. Reviewed recs and filled all meds 01/08/2024 Stented coronary artery (ICD-10 - Z95.5) 01/08/24 (LT PA-C): F/U from hospital -doing well -going back home to [place] next week-will be establishing cardiology care there. Reviewed recs and filled all meds 01/08/2024 Primary hypertension (ICD-10 - I10) 01/08/24 (LT PA-C): F/U from hospital -doing well -going back home to [place] next week-will be establishing cardiology care there. Reviewed recs and filled all meds Plan Of Treatment No Information Insurance Providers Payer Name Payer Address Payer Phone Subscriber Number Group Number Insured Name Patient Relationship to Insured Coverage Start Date Coverage End Date [facility] Local (Out of State) [address] [place] [id number] Shawna Shaw Self - patient is the insured Medical (General) History Medical History History ICD Code Hypertension Hyperlipidemia Thyroid Disease -hypothyroid Sarcoidosis TTE (01/01/24) LVEF 55-60% GIDD No ; no MR; Surgical History Surgery Date(Month/Year) PCI/ KAJAL Xience 3.25 x 23 mm to the RCA utilizing OCT guidance, intravascular lithoplasty (KISS) 01/04/2024 LHC- LM-LI; LAD-LI; LCX-LI; RCA heavily calcified prox 70-80% 01/04/2024
--- OUTSIDE RECORDS SUMMARY | 2024-02-09 17:45 | XMS_ITS ---
Author Organization [facility] ET Address [address] [place] [address] Care Team Providers Care Industrial Pharmacist Name Role Phone Johnny FERRARO, Smith Primary Care Provider Unava ilable Devon Sarabia Unavailable [phone] Janine Dowell Unavailable REASON FOR VISIT *Hospital Follow Up Encounters Encounter Location Date Provider Diagnosis [facility] ET [address] [place] [address] 01/15/2024 Janine Friedman Plan Of Treatment No Information Progress Notes * Bjorn ROBBOB:1950 (73 yo F)Acc No.[id number]:01/15/2024 Patient:?Shawna ROBB Provider:?Janine Friedman APN :1950???Age:73 Y???Sex:Female D ate:01/15/2024 Address:[address] [place], [place] [id number] Pcp:Smith Turner MD Subjective: * Chief Complaints: * ???1. *Hospital Follow Up. * Medical History:? Objective: * Vitals:? Assessment: Plan: * Treatment: * Billing Information: * Visit Code:? * Procedure Codes:? * Electronic signature of Amy Friedman NP on 02/09/2024 at 05:45 PM EST Sign off status: Pending * Provider:?Janine Friedman APN Date :?01/15/2024 Generated for Wilma stacy/Laura/Alisson on:?02/09/2024 05:45 PM EST
--- OUTSIDE RECORDS SUMMARY | 2024-02-09 17:45 | XMS_ITS ---
Author Organization [facility] Address [address] [place] [address] Care Team Providers Care Knuckler Name Role Phone Smith Turner MD Primary Care Provider Unava Devon Chicas Unavailable [phone] JasminNeeru Unavailable [phone] Allergies No Known Allergies REASON FOR VISIT *Hospital Follow Up Medications Medication SIG (Take, Route, Frequency, Duration) Notes Start Date End Date Status Valsartan-hydroCHLOROt hiazide 80-12.5 MG TAKE 1 TABLET BY MOUTH DAILY Oral once a day for 90 days p/u in 1 week Active Metoprolol Succinate ER 25 MG 1 tablet Oral once a day for 90 days Will be picking up in 1 week -[place] Active Atorvastatin Calcium 40 MG 1 tablet Oral once a day for 90 days p/u 1 week in [place] Active Eliquis 5 MG TAKE 1 TABLET (5 MG) 2 TIMES DAILY BY MOUTH INDICATIONS: NON-VALVULAR ATRIAL FIBRILLATION Oral twice a day for 30 days 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 Active Clopidogrel Bisulfate 75 MG 1 tablet Oral once a day for 90 days will p/u in 1 week Active Lexapro 10 MG 1 tablet Orally Once a day Active Levothyroxine Sodium 100 MCG 1 tablet in the morning on an empty stomach Orally Once a day Active Social History Tobacco Use: Social History Observation Description Date Details (start date - stop date) Never Smoker NA - NA Tobacco Control (Standard) Question Answer Notes Tobacco use: Nonsmoker Problems Problem Type SNOMED Code ICD Code Onset Dates Problem Status W/U Status Risk Notes Problem 99792227 NSTEMI (non-ST elevated myocardial infarction) (I21.4) Active confirmed Problem 28861061 Atrial fibrillation, unspecified type (I48.91) Active confirmed Problem 89537991 Coronary artery disease involving [place] coronary artery of [place] heart without angina pectoris (I25.10) Active confirmed Problem 970510394 Stented coronary artery (Z95.5) Active confirmed Problem 03903267 Primary hypertension (I10) Active confirmed Vital Signs Blood pressure systolic 122 mm Hg 01/08/20 24 Blood pressure diastolic 80 mm Hg 024 Heart Rate 65 /min 01/08/2024 Oximetry 98 % 01/08/2024 Weight 188 lbs 01/08/2024 Weight-kg 85.28 kg 01/08/2024 Encounters Encounter Location Date Provider Diagnosis [facility] [address] [place] [id number] 01/08/2024 Neeru Castellanos NSTEMI (non-ST elevated myocardial infarction) I21.4 ; Atrial fibrillation, unspecified type I48.91 ; Coronary artery disease involving [place] coronary artery of [place] heart without angina pectoris I25.10 ; Stented coronary artery Z95.5 and Primary hypertension I10 Assessments Encounter Date Diagnosis (ICD Code) Assessment Notes Treatment Notes Treatment Clinical Notes Section Notes 01/08/2024 NSTEMI (non-ST elevated myocardial infarction) (ICD-10 - I21.4) 01/08/24 (LT PA-C): F/U from hospital -doing well -going back home to [place] next week-will be establishing cardiology care there. Reviewed recs and filled all meds 01/08/2024 Atrial fibrillation, unspecified type (ICD-10 - I48.91) 01/08/24 (LT PA-C): F/U from hospital -doing well -going back home to [place] next week-will be establishing cardiology care there. Reviewed recs and filled all meds 01/08/2024 Coronary artery disease involving [place] coronary artery of [place] heart without angina pectoris (ICD-10 - I25.10) 01/08/24 (LT PA-C): F/U from hospital -doing well -going back home to [place] next week-will be establishing cardiology care there. Reviewed recs and filled all meds 01/08/2024 Stented coronary artery (ICD-10 - Z95.5) 01/08/24 (LT PA-C): F/U from hospital -doing well -going back home to [place] next week-will be establishing cardiology care there. Reviewed recs and filled all meds 01/08/2024 Primary hypertension (ICD-10 - I10) 01/08/24 (LT ZIMMER): F/U from hospital -doing well -going back home to [place] next week-will be establishing cardiology care there. 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WAS not accompanied by anyone.?Patient was offered a web assistant:?DECLINED.?Office Visit:? 73-year-old female with PMHx of HTN, hypothyroidism, sarcoidosis, hyperlipidemia who presented with chest pain and palpitations that started day of admission. Patient stated the chest pain was burning radiating up to the jaw. She states that the chest pain was substernal, 7 out of 10, and happen when exerting herself around the house doing housework. Chest pain was associated with shortness of breath and palpitations that was slightly improved with rest, and great improvement with nitro. New onset AF/RVR Underwent [facility] -Dr. Guerrero.-single vessel CAD s/p? successful PCI to the right coronary artery utilizing OCT guidance, intravascular lithoplasty. The lesion was treated with a Xience 3.25 x 23 mm drug eluting stent post dilated to 3.5 mm in diameter. Recommend 3 months of eliquis/plavix followed by eliquis monotherapy. 01/08/24 (LT ZIMMER) Here for F/u from the above hospitalization. Lives in [place] here visiting her daughter. Since discharge she is feeling well but fatigued. Denies cp, palpitations, dyspnea, lightheadedness, syncope. Adherent with all her new medications -will need refills sent to pharmacy in [place] -since not yet set up with a supervisor clam bed there. will see PCP when she returns home. * ROS:?SEE HPI FOR DETAILS. * Medical History:? * Surgical History:?PCI/ KAJAL X ience 3.25 x 23 mm to the RCA utilizing OCT guidance, intravascular lithoplasty (RACHEL) 01/04/2024LHC- LM-LI; LAD-LI; LCX-LI; RCA heavily calcified prox 70-80% 01/04/2024 * Hospitalization/Major Diagno stic Procedure:? * Social History:?Tobacco Use:?Tobacco Control (Standard)?Tobacco use:?Nonsmoker * Medications:?TakingLevothyro xine Sodium 100 MCG Tablet 1 tablet in the morning on an empty stomach Orally Once a day Lexapro 10 MG Tablet 1 tablet Orally Once a day Metoprolol Succinate ER 25 MG Tablet Extended Release 24 Hour Oral Eliquis 5 MG Tablet TAKE 1 TABLET (5 MG) 2 TIMES DAILY BY MOUTH INDICATIONS: NON-VALVULAR ATRIAL FIBRILLATION Oral Clopidogrel Bisulfate 75 MG Tablet TAKE 1 TABLET (75 MG) DAILY BY MOUTH INDICATIONS: ACUTE CORONARY SYNDROME Oral Atorvastatin Calcium 40 MG Tablet TAKE 1 TABLET (40 MG) NIGHTLY BY MOUTH INDICATIONS: HIGH AMOUNT OF FATS IN THE BLOOD Oral Valsartan-hydroCHLOROthiazide 80-12.5 MG Tablet TAKE 1 TABLET BY MOUTH DAILY Oral Medication List reviewed and reconciled with the patientTaking Levothyroxine Sodium 100 MCG Tablet 1 tablet in the morning on an empty stomach Orally Once a day Taking Lexapro 10 MG Tablet 1 tablet Orally Once a day Taking Metoprolol Succinate ER 25 MG Tablet Extended Release 24 Hour Oral Taking Eliquis 5 MG Tablet TAKE 1 TABLET (5 MG) 2 TIMES DAILY BY MOUTH INDICATIONS: NON-VALVULAR ATRIAL FIBRILLATION Oral Taking Clopidogrel Bisulfate 75 MG Tablet TAKE 1 TABLET (75 MG) DAILY BY MOUTH INDICATIONS: ACUTE CORONARY SYNDROME Oral Taking Atorvastatin Calcium 40 MG Tablet TAKE 1 TABLET (40 MG) NIGHTLY BY MOUTH INDICATIONS: HIGH AMOUNT OF FATS IN THE BLOOD Oral Taking Valsartan-hydroCHLOROthiazide 80-12.5 MG Tablet TAKE 1 TABLET BY MOUTH DAILY Oral Medication List reviewed and reconciled with the patient * Allergies:?N.K.D.A.no[Allerg ies Verified] Objective: * Vitals:?BP:122/80mm Hg, HR:6 5/min, Oxygen sat %:98%, Wt:188lbs, Wt-k.28 kg. * Examination: ???General Examination: ?General appearance:?alert, well-nourished, well-developed, in no acute distress.?Eyes:?sclera anicteric.?Oral cavity:?normal, mucosa moist.?Neck / thyroid:?normal appearance, no jugular venous distention.?Heart:?regular rate and rhythm without murmurs, clicks or rubs, S1 and S2 are normal and no S3 and S4 present, PMI not displaced.?Lungs:?clear to auscultation bilaterally, with good air movement and no rales, rhonchi or wheezes.?Chest:?normal appearance.?Peripheral pulses:?normal carotid pulses bilaterally with no bruits appreciated palpable distal pulses; right radial access -resolving ecchymosis no hematoma good distal pulses.?Neurologic:?alert and oriented to person, place and time, communication ability within normal limits, no aphasias present.?Psych:?judgement and insight intact.? Assessment: * Assessment: 1.?NSTEMI (non-ST elevated m yocardial infarction) - I21.4 (Primary)???2.?Atrial fibrillation, unspecified type - I48.91???3.?Coronary artery disease involving [place] coronary artery of [place] heart without angina pectoris - I25.10???4. Stented coronary artery - Z95.5???5.?Primary hypertension - I10??? 01/08/24 (LT ZIMMER): F/U from hospital -doing well -going back home to [place] next week-will be establishing cardiology care there. Reviewed recs and filled all meds Plan: * Treatment: 2.?Atrial fibrillation, unsp ecified type? 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 3.?Coronary artery disease i nvolving [place] coronary artery of [place] heart without angina pectoris? Refill Atorvastatin Calcium Tablet, 40 MG, 1 tablet, Oral, once a day, 90 days, 90 Tablet, Refills 1, Notes to Pharmacist: p/u 1 week in [place].?? 4.?Primary hypertension? Refill Valsartan-hydroCHLOROthiazide Tablet, 80-12.5 MG, TAKE 1 TABLET BY MOUTH DAILY, Oral, once a day, 90 days, 90, Refills 1, Notes to Pharmacist: p/u in 1 week.?? * Procedure Codes:? * Follow Up:?No f/U visiting f rom out of state (Reason: CC: PCP please) * Billing Information: * Visit Code:? 38009 Telehealth [id number]. Modifiers: 95 * Procedure Codes:? * Sign off status: Completed true * Provider:?Neeru Castellanos PA-C Date:?2023 Generated for Wilma stacy/Laura/eTransmitting on:?02/09/2024 05:45 PM EST History and Physical Notes * HPI (History of Present Illness) Category Sub-Category Detail Notes Category Not es Data Integrity Consultant The patient WAS not accompanied by anyon e Patient was offered a web assistant: DECLINE D Office Visit 73-year-old female with PMHx of HTN, hypothyroidism, sarcoidosis, hyperlipidemia who presented with chest pain and palpitations that started day of admission. Patient stated the chest pain was burning radiating up to the jaw. She states that the chest pain was substernal, 7 out of 10, and happen when exerting herself around the house doing housework. Chest pain was associated with shortness of breath and palpitations that was slightly improved with rest, and great improvement with nitro. New onset AF/RVR Underwent [facility] -Dr. Guerrero.-single vessel CAD s/p successful PCI to the right coronary artery utilizing OCT guidance, intravascular lithoplasty. The lesion was treated with a Xience 3.25 x 23 mm drug eluting stent post dilated to 3.5 mm in diameter. Recommend 3 months of eliquis/plavix followed by eliquis monotherapy. 01/08/24 (LT ZIMMER) Here for F/u from the above hospitalization. Lives in [place] here visiting her daughter. Since discharge she is feeling well but fatigued. Denies cp, palpitations, dyspnea, lightheadedness, syncope. Adherent with all her new medications -will need refills sent to pharmacy in [place] -since not yet set up with a supervisor clam bed there. will see PCP when she returns home. Taxation Economist Vitals and Medicatio ns Reconciliation performed by: bb Examination Category Sub-Category Detail Notes Category Not es General Examination General appearance: alert, w ell-nourished, well-developed, in no acute distress Eyes: sclera anicteric Neck / thyroid: normal appearance, n o jugular venous distention Heart: regular rate and rhy thm without murmurs, clicks or rubs, S1 and S2 are normal and no S3 and S4 present, PMI not displaced Chest: normal appearance Lungs: clear to auscultatio n bilaterally, with good air movement and no rales, rhonchi or wheezes Abdomen: Neurologic: alert and oriented t o person, place and time, communication ability within normal limits, no aphasias present Peripheral pulses: normal carotid pulse s bilaterally with no bruits appreciated palpable distal pulses; right radial access -resolving ecchymosis no hematoma good distal pulses Lymph nodes: Psych: judgement and insigh t intact Oral cavity: normal, mucosa moist
== END 2024-02-03 10:45 | disposition home or self-care (01) ==
LOC: HO.MAMMO 10:44
PROVIDERS: PCP Internal Medicine; Visit Provider Internal Medicine
DX: Z12.31 Encounter for screening mammogram for malignant neoplasm of breast (principal)
CPT/HCPCS: 77063; 77067

== ENCOUNTER → 2024-02-03 11:00 | Outpatient (BNV) | payer MEDICARE, MEDICAID, SELFPAY | PROVIDERS: PCP Internal Medicine; Visit Provider Internal Medicine | DX: Z12.31 Encounter for screening mammogram for malignant neoplasm of breast (principal) | CPT/HCPCS: 77063; 77067 ==

== ENCOUNTER 2024-05-27 09:18 | Outpatient (AMB) | payer MEDICARE, MEDICAID, SELFPAY ==
--- NOTE | 2024-05-27 09:19 | MHC.PC.OV ---
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 Accompanied by: Self / Same As Patient Allergies fluoxetine Adverse Reaction (Unknown, Verified 05/27/24 10:20) increasing anxiety and jitteriness Medication List - Last Reconciled 05/27/24 by Kit Turner MD apixaban (Eliquis) 5 mg PO BID atorvastatin 40 mg PO DAILY cholecalciferol (vitamin D3) 50 mcg PO DAILY clopidogrel 75 mg PO DAILY escitalopram oxalate 10 mg PO DAILY 90 days levothyroxine 100 mcg PO DAILY 90 days metoprolol succinate ER 25 mg PO DAILY valsartan-hydrochlorothiazide 80-12.5 mg 1 tab PO DAILY Tobacco use date assessed: 05/27/24 Fall risk assessment: No Falls in past year Last assessed Fall Risk: 05/27/24 Dental Screening Dental Screen Date: 05/27/24 Did you have a dental visit in the last 12 months?: No Did you have a dental problem in the last 6 months where you did not have access to dental care?: No Was dental information given to patient?: Patient has dentist HPI 4 month f/u HPI Details Patient comes in today for her follow up visit States that she currently feels okay although she still feels fatigued often Notes that she has been feeling this way ever since she tested positive for COVID last year She currently denies any fever or sore throat; denies any recent cough/cold symptoms She denies any headaches or dizziness Denies any chest pains, no increased SOB No nausea/vomiting, no abdominal pain No change in bowel habits noted She was admitted at [facility]] in [facility] on 12/31/23 when she presented to the ER there in [place] with RVR She was also diagnosed with NSTEMI at the time and ended up having cardiac cath with stenting of the RCA on 01/04/24; was discharged home the next day (01/05/24) She also had significant changes to her medications since I last saw her for her routine follow up appointment in August 2023 - current meds include Plavix 75 mg, Apixaban 5 mg, Metoprolol 25 mg, Atorvastatin 40 mg and Diovan-HCT 80/125 mg States that she was just seen by 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 at [facility] just a few days ago earlier this week for follow up She did not have any follow up labs done prior to her appointment today - states that she went to the lab the other day and was told that she did not have any orders in her file [facility] Medical History (Updated 05/27/24 @ 10:44 by Kit Turner MD) Coronary artery disease Atrial fibrillation with rapid ventricular response Dermatitis Knee pain Obesity (BMI 30-39.9) Anxiety Vitamin D deficiency Impaired fasting glucose Acquired hypothyroidism Pure hypercholesterolemia Benign essential hypertension Surgical History S/P right coronary artery (RCA) stent placement Status post cardiac catheterization History of surgery Family History Father Stroke Mother Hypertension TIA (transient ischemic attack) Sister Hodgkin disease Other Mental health problem Social History Housing: House Alcohol intake: never Patient Tobacco Use Status: Former Tobacco user Tobacco use type: Cigarette e-Cigarette/Vaping Use: Never Used Second Hand Smoke Exposure: Yes service: No Current occupational status: retired Cognitive needs: No Hearing needs: No Vision needs: Yes (glasses) Questionnaire PHQ-9 Over the last 2 weeks, how often have you been bothered by any of the following problems? 1. Little interest or pleasure in doing things: not at all 2. Feeling down, depressed, or hopeless: not at all 3. Trouble falling or staying asleep, or sleeping too much: not at all 4. Feeling tired or having little energy: not at all 5. Poor appetite or overeating: not at all 6. Feeling bad about yourself - or that you are a failure or have let yourself or your family down: not at all 7. Trouble concentrating on things, such as reading the newspaper or watching television: not at all 8. Moving or speaking so slowly that other people could have noticed. Or the opposite - being so fidgety or restless that you have been moving around a lot more than usual: not at all 9. Thoughts that you would be better off or of hurting yourself in some way: not at all Total score: 0 Depression Screening Interpretation: Negative Depression Screening Done: Yes 96991 - PHQ-9 Billing: Yes Source: Developed by Drs. Girma Holcomb, Huong Pugh, Damien Mccabe and colleagues, with an educational sheila from [employer]. Thrive Questionnaire Date Thrive assessed: 05/27/24 I am a: Patient What is your living situation today?: I have a steady place to live Within the past 12 months, did the food you bought not last and you didn't have the money to get more?: Never true Within the past 12 months, did you worry whether your food would run out before you got money to buy more?: Never true Do you have trouble paying for medicines?: No Do you have trouble getting transportation to medical appointments?: No Do you have trouble paying your heating and electricity bill?: No Do you have trouble taking care of your child, family member or friend?: No Do you have trouble with day-to-day activities such as bathing, preparing meals, shopping, managing finances, etc.?: No Are you currently unemployed and looking for a job?: No Are you interested in more education?: No Please select the resources that you would like help with: None Currently or been in a relationship where the following occur: No concerns reported THRIVE Score: 0 AUDIT C Alcohol Use Questionnaire (AUDIT-C) 1. How often do you have a drink containing alcohol?: Never 3. How often do you have six or more drinks on one occasion?: Never Total Score: 0 Score Reviewed/Action Taken: Yes KARINA-7 AMB Questionnaire KARINA-7 Date KARINA - 7 assessed: 05/27/24 Feeling nervous, anxious, or on edge: 0 = Not at all Not being able to stop or control worryin = Not at all Worrying too much about different things: 0 = Not at all Trouble relaxin = Not at all Being so restless that it is hard to sit still: 0 = Not at all Becoming easily annoyed or irritable: 0 = Not at all Feeling afraid as if something awful might happen: 0 = Not at all Total KARINA-7 score (0-4 normal; 5-9 mild; 10-14 moderate; 15-21 severe): 0 Source: Developed by Drs. Girma Holcomb, Huong Pugh, Damien Mccabe and colleagues, with an educational sheila from [employer]. Review of Systems Const Denies chills, Reports fatigue, Denies fever(s) and Denies headache(s) ENT Denies dysphagia, Denies dizziness, Denies otalgia, Denies headache(s), Denies nasal congestion, Denies neck pain, Denies odynophagia and Denies sore throat Card Denies chest pain, Denies palpitations and Denies dyspnea Resp Denies chest congestion, Denies cough and Denies dyspnea GI Denies abdominal pain, Denies constipation, Denies dysphagia, Denies heartburn, Denies diarrhea, Denies nausea, Denies odynophagia and Denies vomiting Denies difficulty voiding, Denies nocturia, Denies dysuria and Denies urinary urgency Musc Denies back pain, Reports arthralgias (on and off over the knees) and Denies neck pain Skin/Breast Denies rash Neuro Denies dizziness and Denies headache(s) Psych Denies anxiety (better controlled on Rx) Endo Reports fatigue and Denies palpitations Physical exam (Primary Care) Vital Signs: Last Vital Signs Pulse 63 05/27/24 09:20 BP 122/80 05/27/24 09:20 Pulse Ox 97 05/27/24 09:20 Oxygen Delivery Method Room Air 05/27/24 09:20 BMI result Body Mass Index 32.3 Tobacco/Smoking Status: Tobacco use Status Tobacco use date assessed 05/27/24 05/27/24 09:26 Patient Tobacco Use Status Former Tobacco user 05/27/24 09:26 Tobacco use type Cigarette 05/27/24 09:26 e-Cigarette/Vaping Use Never Used 05/27/24 09:26 PHQ-9: PHQ-9 Score PHQ-9: Total score 0 05/27/24 10:36 Depression Screening Interpretation: Negative Thrive Assessment: Date of Thrive Assessment Date Thrive assessed 05/27/24 05/27/24 09:26 Currently or been in a relationship where the following occur: No concerns reported Const General: no acute distress and alert HENMT Ears: TM's normal bilaterally and EAC's normal Throat: Yes posterior oropharynx normal and Yes tonsils normal (no TP congestion noted) Neck Neck: Yes supple and No lymphadenopathy Thyroid: Thyroid normal Resp Auscultation: clear to auscultation bilaterally, no rales and no wheezes Cardio Rate: regular rate Rhythm: regular rhythm Heart sounds: no murmurs GI Palpation (GI): Soft to palpation and nontender Auscultation: normal bowel sounds General: Yes no CVA tenderness Back/Spine/Pelvis Back: no CVA tenderness Thoracic/Lumbar Spine: No lumbar spinal tenderness Skin Rashes: no rashes Extrem General: Yes no clubbing, cyanosis or edema Results Reviewed Results Reviewed: Laboratory Tests 01/19/24 10:11 Fasting Glucose 113 H Hemoglobin A1c % 5.7 Triglycerides 102 Cholesterol 122 LDL Cholesterol, Calc 68 HDL Cholesterol 34 L TSH 4.02 H Free T4 1.17 Coding Level of Care Code Est Pt Level 4 (76479) Complex EM visit Add On G2211 Diagnoses Coronary artery disease involving [place] coronary artery of [place] heart without angina pectoris I25.10 Associated angina: without angina Coronary Disease-Associated Artery/Lesion type: [place] artery [place] vs. transplanted heart: [place] heart Atrial fibrillation with rapid ventricular response I48.91 Pure hypercholesterolemia E78.00 Benign essential hypertension I10 Acquired hypothyroidism E03.9 Impaired fasting glucose R73.01 Vitamin D deficiency E55.9 Anxiety F41.9 Obesity (BMI 30-39.9) E66.9 Additional Codes PHQ-9 - 90049 - PHQ-9 Billing: Yes ([id number]) Assessment & Plan Assessment & Plan (1) Coronary artery disease: Code(s): I25.10 - Atherosclerotic heart disease of [place] coronary artery without angina pectoris Category: Medical Qualifiers: Associated angina: without angina Coronary Disease-Associated Artery/Lesion type: [place] artery [place] vs. transplanted heart: [place] heart Qualified Code(s): I25.10 - Atherosclerotic heart disease of [place] coronary artery without angina pectoris Plan: Patient was diagnosed with NSTEMI when she went to the ER at [facility]3] back on 01/04/2024 She subsequent underwent cardiac cath with stenting of the RCA Continue Clopidogrel 75 mg QD and Apixaban 5 mg BID Continue Metoprolol ER 25 mg QD Follow up with [facility] as scheduled (2) Atrial fibrillation with rapid ventricular response: Code(s): I48.91 - Unspecified atrial fibrillation Category: Medical Plan: Patient is currently in sinus rhythm She was found to be in atrial fibrillation with RVR when she presented to the ER in [facility] back in January 2024 with symptoms She was also diagnosed with NSTEMI at the time Continue Apixaban 5 mg BID and Metoprolol ER 25 mg QD We have not received any records from [facility]3] regarding her ER visit and hospitalization there in January 2024 and will again have the office reach out to them and request to have them sent over as soon as possible for review and documentation (3) Pure hypercholesterolemia: Code(s): E78.00 - Pure hypercholesterolemia, unspecified Category: Medical Plan: She does not have any follow up labs done recently prior to her appointment today - states that she went to the lab the other day and was told that she did not have any orders in her file Her cholesterol numbers were excellent and at goal when they were last checked in January 2024 - LDL cholesterol was at 68 mg/dl back then Reinforced low cholesterol diet Continue Atorvastatin 40 mg QD Will recheck her labs and fasting lipids in 4 months for follow up (4) Benign essential hypertension: Code(s): I10 - Essential (primary) hypertension Category: Medical Plan: Reinforced low sodium diet - goal is systolic BP of at least 130 to 140 mm or less Continue Valsartan-HCT 80-12.5 mg QD and Metoprolol ER 25 mg QD Patient is reminded to continue monitoring her BP regularly (5) Acquired hypothyroidism: Code(s): E03.9 - Hypothyroidism, unspecified Category: Medical Plan: Her serum TSH was still slightly elevated when her TFTs were last checked in January 2024 but this has improved from previous Her free T4 level remained normal Patient is also clinically euthyroid at present Continue Levothyroxine 100 mcg QD (6) Impaired fasting glucose: Code(s): R73.01 - Impaired fasting glucose Category: Medical Plan: Reinforced low calorie diet/exercise as tolerated Her HgbA1c was normal at 5.7% when previously checked Will continue to monitor her glycemic control closely (7) Vitamin D deficiency: Code(s): E55.9 - Vitamin D deficiency, unspecified Category: Medical Plan: Continue Vitamin D3 2000 units QD (8) Anxiety: Code(s): F41.9 - Anxiety disorder, unspecified Category: Medical Plan: Continue Escitalopram 10 mg QD (9) Obesity (BMI 30-39.9): Code(s): E66.9 - Obesity, unspecified Category: Medical Plan: Reinforced diet/exercise as tolerated/lose weight Plan Follow up in 4 months
[2024-05-27 09:20] VITALS: BP 122/80; PULSE 63; O2SAT 97; BMI 32.3
== END 2024-05-27 10:24 | disposition home or self-care (01) ==
LOC: HO.HMCH 09:19
PROVIDERS: PCP Internal Medicine; Visit Provider Internal Medicine
DX: I25.10 Atherosclerotic heart disease of native coronary artery without angina pectoris (principal); I48.91 Unspecified atrial fibrillation; E66.9 Obesity, unspecified; Z68.32 Body mass index [BMI] 32.0-32.9, adult; E78.00 Pure hypercholesterolemia, unspecified; I10 Essential (primary) hypertension; E03.9 Hypothyroidism, unspecified; R73.01 Impaired fasting glucose; E55.9 Vitamin D deficiency, unspecified; F41.9 Anxiety disorder, unspecified

== ENCOUNTER → 2024-05-27 09:18 | Outpatient (BNVA) | payer MEDICARE, MEDICAID, SELFPAY | PROVIDERS: PCP Internal Medicine; Visit Provider Internal Medicine | DX: I25.10 Atherosclerotic heart disease of native coronary artery without angina pectoris (principal); I48.91 Unspecified atrial fibrillation; I10 Essential (primary) hypertension; E78.00 Pure hypercholesterolemia, unspecified; E03.9 Hypothyroidism, unspecified; R73.01 Impaired fasting glucose; E55.9 Vitamin D deficiency, unspecified; F41.9 Anxiety disorder, unspecified; E66.9 Obesity, unspecified; Z68.32 Body mass index [BMI] 32.0-32.9, adult; Z71.3 Dietary counseling and surveillance | CPT/HCPCS: 96127; 99212 ==

== ENCOUNTER 2024-11-08 09:52 | Outpatient (REF) | payer MEDICARE, SELFPAY ==
--- OUTSIDE RECORDS SUMMARY | 2024-01-15 04:00 | XMS_ITS ---
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 Name Role Phone Smith Turner MD Primary Care Provider Unava ilable Devon Sarabia Unavailable [phone] Janine Dowell Unavailable [phone] REASON FOR VISIT *Hospital Follow Up Encounters Encounter Location Date Provider Diagnosis [address] [address] 01/15/2024 Janine Friedman Plan Of Treatment No Information Progress Notes * Bjorn ROBBOB:1950 (74 yo F)Acc No.[id number]:01/15/2024 Patient: Shawna GRIFFITHS Provider: Rashad Friedman APN :1950 A ge:73 Y S ex:Female Date:01/15/2024 Address:[address] [place], [place] [id number] Pcp:Smith Turner MD Subjective: * Chief Complaints: * 1 . *Hospital Follow Up. * Medical History: Objective: * Vitals: Assessment: Plan: * Treatment: * Billing Information: * Visit Code: * Procedure Codes: * Electronic signature of Amy Friedman NP on 11/08/2024 at 11:36 AM EDT Sign off status: Pending * Provider: Rashad Friedman APN Date: 03/16/2023 Generated for Wilma stacy/Laura/Chaparroitting on: 0 11/08/2024 11:36 AM EDT
[2024-11-08 10:02] LABS: MANUAL DIFF FLAG NO
[2024-11-08 10:56] LABS: Hematocrit 42.8 % (37.0-47.0); Hemoglobin 14.2 g/dl (12.0-16.0); Imm Gran Abs Auto 0.02 X10*3/uL (0.00-0.03); Imm Gran Pct Auto 0.3 % (0.0-0.4); Lymphocytes Absolute Auto 1.0 X10*3/uL (1.2-4.9); Mean Corpuscular HGB Conc 33.2 g/dl (31.0-35.0); Mean Corpuscular Hemoglobin 29.9 pg (27.0-33.0); Mean Corpuscular Volume 90.1 fL (80.0-98.0); NRBC Abs Auto 0.000 X10*3/uL (0.0-0.012); NRBC Pct Auto 0.0 /100WBC (0.0-0.2); Platelet Count 296 X10*3/uL (160-400); Red Blood Count 4.75 X10*6/uL (4.20-5.50); White Blood Count 5.9 X10*3/uL (4.8-10.8)
[2024-11-08 11:10] LABS: Appearance Urine Clear; Glucose Urine UA Negative (Negative); PH 7.0 (5.0-9.0); Specific Gravity - Urine 1.020 (1.005-1.025); UMIC TRIGGER UACC YES
[2024-11-08 11:34] LABS: Alanine Aminotransferase 28 U/L (0-31); Albumin Level 4.5 g/dL (3.5-5.0); Alkaline Phosphatase 72 U/L (39-117); Anion Gap 14 (12-20); Aspartate Amino Transferase 30 U/L (5-31); Blood Urea Nitrogen 12 mg/dL (9-16); Calcium 9.6 mg/dL (8.4-10.2); Carbon Dioxide 30 mmol/L (22-29); Chloride 102 mmol/L (96-108); Cholesterol 135 mg/dL (<200); Estimated Glomerular Filt Rate 59; HDL Cholesterol 31 mg/dL (>40); Potassium 3.8 mmol/L (3.3-5.1); Sodium 142 mmol/L (135-145); Total Protein 7.2 g/dL (6.5-8.0); Triglycerides 132 mg/dL (<150)
--- OUTSIDE RECORDS SUMMARY | 2024-11-08 11:36 | XMS_ITS | Patient Health Record ---
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 Name Role Phone Johnny FERRARO, Smith Primary Care Provider Devon Hoff Unavailable [phone] Jasmin Neeru Unavailable [phone] Janine Dowell Unavailable Allergies No Known Allergies Reason For Referral No Information Medications Medication SIG (Take, Route, Frequency, Duration) Notes Start Date End Date Status Metoprolol Succinate ER 25 MG TAKE 1 TABLET BY MOUTH EVERY DAY FOR 90 DAYS; Duration: 90 Active Valsartan-hydroCHLOROth iazide 80-12.5 MG TAKE 1 TABLET BY MOUTH DAILY FOR 90 DAYS; Duration: 90 Active Lexapro 10 MG 1 tablet Orally Once a day Active Levothyroxine Sodium 100 MCG 1 tablet in the morning on an empty stomach Orally Once a day Active Eliquis 5 MG TAKE 1 TABLET (5 MG) 2 TIMES DAILY BY MOUTH INDICATIONS: NON-VALVULAR ATRIAL FIBRILLATION Oral twice a day; Duration: 30 days 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 Active Atorvastatin Calcium 40 MG TAKE 1 TABLET BY MOUTH EVERY DAY FOR 90 DAYS; Duration: 90 Active Clopidogrel Bisulfate 75 MG 1 tablet Oral once a day; Duration: 90 days will p/u in 1 week Active Social History Tobacco Use: Social History Observation Description Date Details (start date - stop date) Never Smoker NA - NA Tobacco Control (Standard) Question Answer Notes Tobacco use: Nonsmoker Problems Problem Type SNOMED Code ICD Code Onset Dates Problem Status W/U Status Risk Notes Problem Primary hypertension (30958444) Primary hypertension (I10) Active confirmed Problem Atherosclerotic heart disease of [place] coronary artery without angina pectoris (320766667962607) Coronary artery disease involving [place] coronary artery of [place] heart without angina pectoris (I25.10) Active confirmed Problem Atrial fibrillation (79755383) AF (paroxysmal atrial fibrillation) (I48.0) Active confirmed Problem Atrial fibrillation (97939264) Atrial fibrillation, unspecified type (I48.91) Active confirmed Problem Stented coronary artery (932207391) Stented coronary artery (Z95.5) Active confirmed Problem Acute non-ST segment elevation myocardial infarction (150199118) NSTEMI (non-ST elevated myocardial infarction) (I21.4) Active confirmed Problem Sarcoidosis (92525450) Sarcoid (D86.9) Active confirmed Problem Accelerated essential hypertension (04514645) Accelerated essential hypertension (I10) Active confirmed Problem Acute non-ST segment elevation myocardial infarction (431287491) Acute ND, subendocardial (I21.4) Active confirmed Problem Atherosclerotic heart disease of [place] coronary artery without angina pectoris (863014622709333) 2-vessel coronary artery disease (I25.10) Active confirmed Vital Signs Heart Rate 65 /min 01/08/2024 Blood pressure diastolic 80 mm Hg 01/08/2024 Oximetry 98 % 01/08/2024 Weight-kg 85.28 kg 01/08/2024 Blood pressure systolic 122 mm Hg 01/08/2024 Weight 188 lbs 01/08/2024 Encounters Encounter Location Date Provider Diagnosis [facility] [address] [id number] 01/08/2024 Neeru Castellanos NSTEMI (non-ST elevated myocardial infarction) I21.4 ; Atrial fibrillation, unspecified type I48.91 ; Coronary artery disease involving [place] coronary artery of [place] heart without angina pectoris I25.10 ; Stented coronary artery Z95.5 and Primary hypertension I10 Assessments Encounter Date Diagnosis (ICD Code) Assessment Notes Treatment Notes Treatment Clinical Notes Section Notes 01/08/2024 Atrial fibrillation, unspecified type (ICD-10 - I48.91) 01/08/24 (LT PA-C): F/U from hospital -doing well -going back home to [place] next week-will be establishing cardiology care there. Reviewed recs and filled all meds 01/08/2024 NSTEMI (non-ST elevated myocardial infarction) (ICD-10 - I21.4) 01/08/24 (LT PA-C): F/U from hospital -doing well -going back home to [place] next week-will be establishing cardiology care there. Reviewed recs and filled all meds 01/08/2024 Coronary artery disease involving [place] coronary artery of [place] heart without angina pectoris (ICD-10 - I25.10) 01/08/24 (LT PA-C): F/U from hospital -doing well -going back home to [place] next week-will be establishing cardiology care there. Reviewed recs and filled all meds 01/08/2024 Stented coronary artery (ICD-10 - Z95.5) 01/08/24 (LT PA-C): F/U from hospital -doing well -going back home to [place] next week-will be establishing cardiology care there. Reviewed recs and filled all meds 01/08/2024 Primary hypertension (ICD-10 - I10) 01/08/24 (LT PA-C): F/U from hospital -doing well -going back home to [place] next week-will be establishing cardiology care there. Reviewed recs and filled all meds Plan Of Treatment No Information Insurance Providers Payer Name Payer Address Payer Phone Subscriber Number Group Number Insured Name Patient Relationship to Insured Coverage Start Date Coverage End Date [facility] (Out of State) [address] [place], [place] [id number] Shawna Shaw Self - patient is the [...]
[2024-11-08 11:56] LABS: Free T4 (Free Thyroxine) 0.96 ng/dL (0.71-1.85); Thyroid Stimulating Hormone 12.70 uIU/mL (0.32-4.0)
== END 2024-11-08 09:53 | disposition home or self-care (01) ==
LOC: HO.LAB 09:52
PROVIDERS: PCP Internal Medicine; Visit Provider Internal Medicine
DX: R30.0 Dysuria (principal); E78.00 Pure hypercholesterolemia, unspecified; E03.9 Hypothyroidism, unspecified; E55.9 Vitamin D deficiency, unspecified; D64.9 Anemia, unspecified
CPT/HCPCS: 36415; 80053; 80061; 81001; 82306; 84439; 84443; 85025

== ENCOUNTER 2024-11-16 14:43 | Outpatient (AMB) | payer MEDICARE, MEDICAID, SELFPAY ==
--- OUTSIDE RECORDS SUMMARY | 2024-01-15 04:00 | XMS_ITS ---
Author Organization [facility] Address [address] [place] [address] Care Team Providers Care Cycle Analyst Name Role Phone Smith Turner MD Primary Care Provider Unava ilable Devon Sarabia Unavailable [phone] Janine Dowell Unavailable REASON FOR VISIT *Hospital Follow Up Encounters Encounter Location Date Provider Diagnosis [address] [address] 01/15/2024 Janine Friedman Plan Of Treatment No Information Progress Notes * Bjorn ROBBOB:1950 (74 yo F)Acc No.[id number]:01/15/2024 Patient: Shawna GRIFFITHS Provider: Rashad Friedman APN :1950 A ge:73 Y S ex:Female Date:01/15/2024 Address:[address] [place], [place] [id number] Pcp:Smith Turner MD Subjective: * Chief Complaints: * 1 . *Hospital Follow Up. * Medical History: Objective: * Vitals: Assessment: Plan: * Treatment: * Billing Information: * Visit Code: * Procedure Codes: * Electronic signature of Amy Friedman NP on 11/16/2024 at 06:20 PM EDT Sign off status: Pending * Provider: Rashad Friedman APN Date: 03/16/2023 Generated for Wilma stacy/Laura/Chaparroitting on: 0 11/16/2024 06:20 PM EDT
--- NOTE | 2024-11-16 14:54 | MHC.PC.OV ---
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: No Accompanied by: Self / Same As Patient Allergies escitalopram Adverse Reaction (Intermediate, Verified 11/16/24 15:29) nightmares fluoxetine Adverse Reaction (Unknown, Verified 11/16/24 15:17) increasing anxiety and jitteriness Medication List - Last Reconciled 11/16/24 by Kit Turner MD atorvastatin 40 mg PO DAILY cholecalciferol (vitamin D3) 50 mcg PO DAILY clopidogrel 75 mg PO DAILY escitalopram oxalate 10 mg PO DAILY 90 days levothyroxine 100 mcg PO DAILY 90 days metoprolol succinate ER 25 mg PO DAILY valsartan-hydrochlorothiazide 80-12.5 mg 1 tab PO DAILY Tobacco use date assessed: 11/16/24 Fall risk assessment: 1 Fall in past year Last assessed Fall Risk: 11/16/24 Dental Screening Dental Screen Date: 11/16/24 Did you have a dental visit in the last 12 months?: No Did you have a dental problem in the last 6 months where you did not have access to dental care?: No Was dental information given to patient?: Patient has dentist HPI Reschedule Appt HPI Details wound on right lower leg - walked into [facility] Medical History (Updated 05/27/24 @ 10:44 by Kit Turner MD) Coronary artery disease Atrial fibrillation with rapid ventricular response Dermatitis Knee pain Obesity (BMI 30-39.9) Anxiety Vitamin D deficiency Impaired fasting glucose Acquired hypothyroidism Pure hypercholesterolemia Benign essential hypertension Surgical History S/P right coronary artery (RCA) stent placement Status post cardiac catheterization History of surgery Family History Father Stroke Mother Hypertension TIA (transient ischemic attack) Sister Hodgkin disease Other Mental health problem Social History Housing: House Alcohol intake: never Patient Tobacco Use Status: Former Tobacco user Tobacco use type: Cigarette e-Cigarette/Vaping Use: Never Used Second Hand Smoke Exposure: Yes service: No Current occupational status: retired Cognitive needs: No Hearing needs: No Vision needs: Yes (glasses) Questionnaire PHQ-9 Over the last 2 weeks, how often have you been bothered by any of the following problems? 1. Little interest or pleasure in doing things: not at all 2. Feeling down, depressed, or hopeless: not at all 3. Trouble falling or staying asleep, or sleeping too much: not at all 4. Feeling tired or having little energy: not at all 5. Poor appetite or overeating: not at all 6. Feeling bad about yourself - or that you are a failure or have let yourself or your family down: not at all 7. Trouble concentrating on things, such as reading the newspaper or watching television: not at all 8. Moving or speaking so slowly that other people could have noticed. Or the opposite - being so fidgety or restless that you have been moving around a lot more than usual: not at all 9. Thoughts that you would be better off or of hurting yourself in some way: not at all Total score: 0 Source: Developed by Drs. Girma Holcomb, Huong Pugh, Damien Mccabe and colleagues, with an educational sheila from [employer]. Thrive Questionnaire Date Thrive assessed: 05/27/24 AUDIT C Alcohol Use Questionnaire (AUDIT-C) 1. How often do you have a drink containing alcohol?: Never 3. How often do you have six or more drinks on one occasion?: Never Total Score: 0 Score Reviewed/Action Taken: Yes KARINA-7 AMB Questionnaire KARINA-7 Date KARINA - 7 assessed: 05/27/24 Source: Developed by Drs. Girma Holcomb, Huong Pugh, Damien Mccabe and colleagues, with an educational sheila from [employer]. Physical exam (Primary Care) Vital Signs: Last Vital Signs Pulse 59 11/16/24 14:55 BP 124/82 11/16/24 14:55 Pulse Ox 97 11/16/24 14:55 Oxygen Delivery Method Room Air 11/16/24 14:55 BMI result Body Mass Index 32.8 Tobacco/Smoking Status: Tobacco use Status Tobacco use date assessed 11/16/24 11/16/24 15:02 Patient Tobacco Use Status Former Tobacco user 11/16/24 15:02 Tobacco use type Cigarette 11/16/24 15:02 e-Cigarette/Vaping Use Never Used 11/16/24 15:02 PHQ-9: PHQ-9 Score PHQ-9: Total score 0 11/16/24 15:19 Thrive Assessment: Date of Thrive Assessment Date Thrive assessed 05/27/24 11/16/24 15:02 Immunizations Tenivac (PF) 5 Lf unit-2 Lf unit/0.5 mL intramuscular syringe Performing Provider: Kit Turner MD [place] [facility] [facility] Administered by: TU Jaramillo on 11/16/24 15:36 Dose Route Admin Location Dispensed Lot Number Expiration Date NDC Cardiology Technologist 0.5 mL IM Left Deltoid 0.5 mL [id number] 05/31/26 [id number] [employer] Total Dispensed Waste 0.5 mL 0 % VIS Given Date VIS Provided VIS Publication Date 11/16/24 Single Vaccine 20 Eligibility Eligibility Date Funding Source Not [facility] Eligible 11/16/24 Private Results Reviewed Results Reviewed: Laboratory Tests 11/08/24 11/08/24 09:58 10:00 WBC 5.9 Hgb 14.2 Hct 42.8 Plt Count 296 Sodium 142 Potassium 3.8 Creatinine 0.93 Estimated GFR 59 Calcium 9.6 AST 30 ALT 28 Triglycerides 132 Cholesterol 135 LDL Cholesterol, Calc 78 HDL Cholesterol 31 L 25-OH Vitamin D Total 48.6 TSH 12.70 H Free T4 0.96 Ur Specific [place] 1.020 Urine Protein Negative Urine Glucose (UA) Negative Urine Blood Negative Urine Nitrite Negative Ur Leukocyte Esterase Trace H Coding Level of Care Code Est Pt Level 4 (96165) Diagnoses Coronary artery disease involving [place] coronary artery of [place] heart without angina pectoris I25.10 Associated angina: without angina Coronary Disease-Associated Artery/Lesion type: [place] artery [place] vs. transplanted heart: [place] heart Atrial fibrillation with rapid ventricular response I48.91 Pure hypercholesterolemia E78.00 Benign essential hypertension I10 Acquired hypothyroidism E03.9 Impaired fasting glucose R73.01 Vitamin D deficiency E55.9 Anxiety F41.9 Obesity (BMI 30-39.9) E66.9 Assessment & Plan Assessment & Plan (1) Coronary artery disease: Code(s): I25.10 - Atherosclerotic heart disease of [place] coronary artery without angina pectoris Category: Medical Qualifiers: Associated angina: without angina Coronary Disease-Associated Artery/Lesion type: [place] artery [place] vs. transplanted heart: [place] heart Qualified Code(s): I25.10 - Atherosclerotic heart disease of [place] coronary artery without angina pectoris Plan: Patient was diagnosed with NSTEMI when she went to the ER at [facility] back on 01/04/2024 She subsequent underwent cardiac cath with stenting of the RCA Continue Clopidogrel 75 mg QD and Apixaban 5 mg BID Continue Metoprolol ER 25 mg QD Follow up with [facility] as scheduled (2) Atrial fibrillation with rapid ventricular response: Code(s): I48.91 - Unspecified atrial fibrillation Category: Medical Plan: Patient is currently in sinus rhythm She was found to be in atrial fibrillation with RVR when she presented to the ER in [facility] back in January 2024 with symptoms She was also diagnosed with NSTEMI at the time Continue Apixaban 5 mg BID and Metoprolol ER 25 mg QD We have not received any records from [facility] regarding her ER visit and hospitalization there in January 2024 and will again have the office reach out to them and request to have them sent over as soon as possible for review and documentation (3) Pure hypercholesterolemia: Code(s): E78.00 - Pure hypercholesterolemia, unspecified Category: Medical Plan: She does not have any follow up labs done recently prior to her appointment today - states that she went to the lab the other day and was told that she did not have any orders in her file Her cholesterol numbers were excellent and at goal when they were last checked in January 2024 - LDL cholesterol was at 68 mg/dl back then Reinforced low cholesterol diet Continue Atorvastatin 40 mg QD Will recheck her labs and fasting lipids in 4 months for follow up (4) Benign essential hypertension: Code(s): I10 - Essential (primary) hypertension Category: Medical Plan: Reinforced low sodium diet - goal is systolic BP of at least 130 to 140 mm or less Continue Valsartan-HCT 80-12.5 mg QD and Metoprolol ER 25 mg QD Patient is reminded to continue monitoring her BP regularly (5) Acquired hypothyroidism: Code(s): E03.9 - Hypothyroidism, unspecified Category: Medical Plan: Her serum TSH was still slightly elevated when her TFTs were last checked in January 2024 but this has improved from previous Her free T4 level remained normal Patient is also clinically euthyroid at present Continue Levothyroxine 100 mcg QD (6) Impaired fasting glucose: Code(s): R73.01 - Impaired fasting glucose Category: Medical Plan: Reinforced low calorie diet/exercise as tolerated Her HgbA1c was normal at 5.7% when previously checked Will continue to monitor her glycemic control closely (7) Vitamin D deficiency: Code(s): E55.9 - Vitamin D deficiency, unspecified Category: Medical Plan: Continue Vitamin D3 2000 units QD (8) Anxiety: Code(s): F41.9 - Anxiety disorder, unspecified Category: Medical Plan: Continue Escitalopram 10 mg QD (9) Obesity (BMI 30-39.9): Code(s): E66.9 - Obesity, unspecified Category: Medical Plan: Reinforced diet/exercise as tolerated/lose weight Plan Follow up in 4 months Orders: Orders Complete Blood Count Auto Diff 4 Months D64.9 - Anemia, unspecified Comprehensive Elmer. Panel Fast 4 Months E78.00 - Pure hypercholesterolemia, unspecified Lipid Panel 4 Months E78.00 - Pure hypercholesterolemia, unspecified Free T4 (Free Thyroxine) 4 Months E03.9 - Hypothyroidism, unspecified Vitamin D 25-OH Total 4 Months E55.9 - Vitamin D deficiency, unspecified Td Immunization Today Z23 - Encounter for immunization UA CC w/rflx Micro + Cult 4 Months R30.0 - Dysuria Thyroid Stimulating Hormone 4 Months E03.9 - Hypothyroidism, unspecified Medications: New levothyroxine (Levoxyl) 112 mcg PO DAILY 90 tabs 1RF 90 days aspirin 81 mg PO DAILY 90 tabs 0RF Discontinued levothyroxine Discontinued Reason: Doctor's Order 100 mcg PO DAILY 90 days 90 tabs 1RF E03.9 - Hypothyroidism, unspecified
[2024-11-16 14:55] VITALS: BP 124/82; PULSE 59; O2SAT 97; BMI 32.8
--- OUTSIDE RECORDS SUMMARY | 2024-11-16 18:20 | XMS_ITS | Patient Health Record ---
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 Active Atorvastatin Calcium 40 [...] W/U Status Risk Notes Problem Primary hypertension (99396533) Primary hypertension (I10) Active confirmed Problem Atherosclerotic heart disease of [place] coronary artery without angina pectoris ([id number]) Coronary artery disease involving [place] coronary artery of [place] heart without angina pectoris (I25.10) Active confirmed Problem Atrial fibrillation (85779686) AF (paroxysmal atrial fibrillation) (I48.0) Active confirmed Problem Atrial fibrillation (48179938) Atrial fibrillation, unspecified type (I48.91) Active confirmed Problem Stented coronary artery (861893802) Stented coronary artery (Z95.5) Active confirmed Problem Acute non-ST segment elevation myocardial infarction (387353931) NSTEMI (non-ST elevated myocardial infarction) (I21.4) Active confirmed Problem Sarcoidosis (74879627) Sarcoid (D86.9) Active confirmed Problem Accelerated essential hypertension (01722745) Accelerated essential hypertension (I10) Active confirmed Problem Acute non-ST segment elevation myocardial infarction (409497611) Acute IL, subendocardial (I21.4) Active confirmed Problem Atherosclerotic heart disease of [place] coronary artery without angina pectoris (641746501463359) 2-vessel coronary artery disease (I25.10) Active confirmed Vital Signs Heart Rate 65 /min 01/08/2024 Oximetry 98 % 01/08/2024 Blood pressure diastolic 80 mm Hg 01/08/2024 Weight-kg 85.28 kg 01/08/2024 Blood pressure systolic 122 mm Hg 01/08/2024 Weight 188 lbs 01/08/2024 Encounters Encounter Location Date Provider Diagnosis [facility] [address] [id number] 01/08/2024 Neeru Castellanos NSTEMI (non-ST elevated myocardial infarction) I21.4 ; Atrial fibrillation, unspecified type I48.91 ; Coronary artery disease involving [place] coronary artery of [place] heart without angina pectoris I25.10 ; Stented coronary artery Z95.5 and Primary hypertension I10 Assessments Encounter Date Diagnosis (ICD Code) Assessment Notes Treatment Notes Treatment Clinical Notes Section Notes 01/08/2024 Atrial fibrillation, unspecified type (ICD-10 - I48.91) 01/08/24 (LT PA-C): F/U from hospital -doing well -[place] next [place]-will be establishing cardiology care there. Reviewed recs and filled all meds 01/08/2024 NSTEMI (non-ST elevated myocardial infarction) (ICD-10 - I21.4) 01/08/24 (LT PA-C): F/U from hospital -doing well -going back [place] next week-will be establishing cardiology care there. Reviewed recs and filled all meds 01/08/2024 Coronary artery disease involving [place] coronary artery of [place] heart without angina pectoris (ICD-10 - I25.10) 01/08/24 (LT PA-C): F/U from hospital -doing well -going back [place] next week-will be establishing cardiology care there. Reviewed recs and filled all meds 01/08/2024 Stented coronary artery (ICD-10 - Z95.5) 01/08/24 (LT PA-C): F/U from hospital -doing well -going back home to [place] next week-will be establishing cardiology care there. Reviewed recs and filled all meds 01/08/2024 Primary hypertension (ICD-10 - I10) 01/08/24 (LT PA-C): F/U from hospital -doing well -going back home to [place] next week-will be establishing cardiology care there. Reviewed recs and filled all meds Plan Of Treatment No Information Insurance Providers Payer Name Payer Address Payer Phone Subscriber Number Group Number Insured Name Patient Relationship to Insured Coverage Start Date Coverage End Date [facility] Local (Out of State) [address] [place], [place] [id number] Shawna Shaw Self - patient is the [...]
== END 2024-11-16 15:36 | disposition home or self-care (01) ==
LOC: HO.HMCH 14:44
PROVIDERS: PCP Internal Medicine; Visit Provider Internal Medicine
DX: Z23 Encounter for immunization (principal)

== ENCOUNTER → 2024-11-16 14:43 | Outpatient (BNVA) | payer MEDICARE, MEDICAID, SELFPAY | PROVIDERS: PCP Internal Medicine; Visit Provider Internal Medicine | DX: I25.10 Atherosclerotic heart disease of native coronary artery without angina pectoris (principal); I48.91 Unspecified atrial fibrillation; E78.00 Pure hypercholesterolemia, unspecified; I10 Essential (primary) hypertension; E03.9 Hypothyroidism, unspecified; R73.01 Impaired fasting glucose; E55.9 Vitamin D deficiency, unspecified; F41.9 Anxiety disorder, unspecified; E66.9 Obesity, unspecified; D64.9 Anemia, unspecified; R30.0 Dysuria; S81.801S Unspecified open wound, right lower leg, sequela; X58.XXXS Exposure to other specified factors, sequela; Z23 Encounter for immunization; Z68.32 Body mass index [BMI] 32.0-32.9, adult | CPT/HCPCS: 90471; 90714; 96127; 99212 ==

== ENCOUNTER 2024-12-13 12:00 | Outpatient (AMB) | payer MEDICARE, MEDICAID, SELFPAY ==
--- NOTE | 2024-12-13 12:34 | A.OFFPC_ITS ---
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: No Accompanied by: Self / Same As Patient Allergies escitalopram Adverse Reaction (Intermediate, Verified 12/13/24 13:03) nightmares fluoxetine Adverse Reaction (Unknown, Verified 12/13/24 13:03) increasing anxiety and jitteriness Medication List - Last Reconciled 12/13/24 by Kit Turner MD aspirin 81 mg PO DAILY atorvastatin 40 mg PO DAILY cholecalciferol (vitamin D3) 50 mcg PO DAILY clopidogrel 75 mg PO DAILY escitalopram oxalate 10 mg PO DAILY 90 days levothyroxine (Levoxyl) 112 mcg PO DAILY 90 days metoprolol succinate ER 25 mg PO DAILY valsartan-hydrochlorothiazide 80-12.5 mg 1 tab PO DAILY Tobacco use date assessed: 12/13/24 Fall risk assessment: 1 Fall in past year Last assessed Fall Risk: 12/13/24 Dental Screening Dental Screen Date: 12/13/24 Did you have a dental visit in the last 12 months?: No Did you have a dental problem in the last 6 months where you did not have access to dental care?: No Was dental information given to patient?: No HPI Pre-op Cataract Surgery 12/19/24 HPI Details Patient comes in today at the request of [facility] for a preoperative medical examination for clearance for surgery She is scheduled for cataract extraction/phacoemusification with IOL under MAC of the left eye on 12/19/2024, followed by the same procedure on the right eye a week later on 12/26/2024 Patient states that he feels okay She denies any headaches or dizziness Denies any exertional chest pains, no SOB No nausea/vomiting, no abdominal pain No change in bowel habits noted PFSH Medical History Coronary artery disease Atrial fibrillation with rapid ventricular response Dermatitis Knee pain Obesity (BMI 30-39.9) Anxiety Vitamin D deficiency Impaired fasting glucose Acquired hypothyroidism Pure hypercholesterolemia Benign essential hypertension Surgical History S/P right coronary artery (RCA) stent placement Status post cardiac catheterization History of surgery Family History Father Stroke Mother Hypertension TIA (transient ischemic attack) Sister Hodgkin disease Other Mental health problem Social History Housing: House Alcohol intake: never Patient Tobacco Use Status: Former Tobacco user Tobacco use type: Cigarette e-Cigarette/Vaping Use: Never Used Second Hand Smoke Exposure: Yes service: No Current occupational status: retired Cognitive needs: No Hearing needs: No Vision needs: Yes (glasses) Questionnaire Thrive Questionnaire Date Thrive assessed: 05/27/24 AUDIT C Alcohol Use Questionnaire (AUDIT-C) 1. How often do you have a drink containing alcohol?: Never 3. How often do you have six or more drinks on one occasion?: Never Total Score: 0 Score Reviewed/Action Taken: Yes KARINA-7 AMB Questionnaire KARINA-7 Date KARINA - 7 assessed: 05/27/24 Source: Developed by Drs. Girma Holcomb, Huong Pugh, Damien Mccabe and colleagues, with an educational sheila from [employer]. Review of Systems Const Denies chills, Denies fatigue, Denies fever(s) and Denies headache(s) Eyes Reports blurry vision ENT Denies dysphagia, Denies dizziness, Denies otalgia, Denies headache(s), Denies neck pain, Denies odynophagia and Denies sore throat Card Denies chest pain, Denies palpitations and Denies dyspnea Resp Denies chest congestion, Denies cough and Denies dyspnea GI Denies abdominal pain, Denies constipation, Denies dysphagia, Denies heartburn, Denies diarrhea, Denies nausea, Denies odynophagia and Denies vomiting Denies difficulty voiding, Denies nocturia, Denies dysuria and Denies urinary urgency Musc Denies back pain, Reports arthralgias (on and off over the knees) and Denies neck pain Skin/Breast Denies rash Neuro Denies dizziness and Denies headache(s) Psych Denies anxiety (better controlled on Rx) Endo Denies fatigue and Denies palpitations Physical exam (Primary Care) Vital Signs: Last Vital Signs Temp 93.7 F L 12/13/24 12:36 Pulse 62 12/13/24 12:36 Resp 18 12/13/24 12:36 BP 122/78 12/13/24 13:09 Pulse Ox 97 12/13/24 12:36 Oxygen Delivery Method Room Air 12/13/24 12:36 BMI result Body Mass Index 32.6 Tobacco/Smoking Status: Tobacco use Status Tobacco use date assessed 12/13/24 12/13/24 12:37 Patient Tobacco Use Status Former Tobacco user 12/13/24 12:35 Tobacco use type Cigarette 12/13/24 12:35 e-Cigarette/Vaping Use Never Used 12/13/24 12:35 Thrive Assessment: Date of Thrive Assessment Date Thrive assessed 05/27/24 12/13/24 12:35 Const General: no acute distress and alert HENMT Throat: Yes posterior oropharynx normal and Yes tonsils normal (no TP congestion noted) Neck Neck: Yes supple and No lymphadenopathy Thyroid: Thyroid normal Resp Auscultation: clear to auscultation bilaterally, no rales and no wheezes Cardio Rate: regular rate Rhythm: regular rhythm Heart sounds: no murmurs GI Palpation (GI): Soft to palpation and nontender Auscultation: normal bowel sounds General: Yes no CVA tenderness Back/Spine/Pelvis Back: no CVA tenderness Thoracic/Lumbar Spine: No lumbar spinal tenderness Skin Rashes: no rashes Extrem General: Yes no clubbing, cyanosis or edema Results Reviewed Results Reviewed: Laboratory Tests 11/08/24 10:00 WBC 5.9 Hgb 14.2 Hct 42.8 Plt Count 296 Sodium 142 Potassium 3.8 Creatinine 0.93 Estimated GFR 59 AST 30 ALT 28 Coding Level of Care Code Est Pt Level 4 (90530) Diagnoses Preoperative examination Z01.818 Age-related cataract of both eyes, unspecified age-related cataract type H25.9 Cataract type: age-related Age-related cataract type: unspecified Coronary artery disease involving [place] coronary artery of [place] heart without angina pectoris I25.10 Coronary Disease-Associated Artery/Lesion type: [place] artery [place] vs. transplanted heart: [place] heart Associated angina: without angina Atrial fibrillation with rapid ventricular response I48.91 Pure hypercholesterolemia E78.00 Benign essential hypertension I10 Acquired hypothyroidism E03.9 Impaired fasting glucose R73.01 Anxiety F41.9 Obesity (BMI 30-39.9) E66.9 Assessment & Plan Assessment & Plan (1) Preoperative examination: Code(s): Z01.818 - Encounter for other preprocedural examination Category: Medical Plan: Patient presents with acceptable risks for planned low cardiac risk procedure She currently has no contraindications to undergo planned eye surgeries (2) Cataracts, bilateral: Code(s): H26.9 - Unspecified cataract Category: Medical Qualifiers: Cataract type: age-related Age-related cataract type: unspecified Qualified Code(s): H25.9 - Unspecified age-related cataract Plan: She is scheduled for cataract extraction/phacoemusification with IOL under MAC of the left eye on 12/19/2024, followed by the same procedure on the right eye a week later on 12/26/[address] Morillo (3) Coronary artery disease: Code(s): I25.10 - Atherosclerotic heart disease of [place] coronary artery without angina pectoris Category: Medical Qualifiers: Coronary Disease-Associated Artery/Lesion type: [place] artery [place] vs. transplanted heart: [place] heart Associated angina: without angina Qualified Code(s): I25.10 - Atherosclerotic heart disease of [place] coronary artery without angina pectoris Plan: Patient was diagnosed with NSTEMI when she went to the ER at [facility] back on 01/04/2024 She subsequent underwent cardiac cath with stenting of the RCA Continue Clopidogrel 75 mg QD and Apixaban 5 mg BID Continue Metoprolol ER 25 mg QD Follow up with [facility] as scheduled (4) Atrial fibrillation with rapid ventricular response: Code(s): I48.91 - Unspecified atrial fibrillation Category: Medical Plan: Patient is currently in sinus rhythm She was found to be in atrial fibrillation with RVR when she presented to the ER in [facility] back in January 2024 with symptoms She was also diagnosed with NSTEMI at the time Continue Apixaban 5 mg BID and Metoprolol ER 25 mg QD Follow up with cardiology as scheduled (5) Pure hypercholesterolemia: Code(s): E78.00 - Pure hypercholesterolemia, unspecified Category: Medical Plan: Reinforced low cholesterol diet Continue Atorvastatin 40 mg QD (6) Benign essential hypertension: Code(s): I10 - Essential (primary) hypertension Category: Medical Plan: Reinforced low sodium diet - goal is systolic BP of at least 130 to 140 mm or less Continue Valsartan-HCT 80-12.5 mg QD and Metoprolol ER 25 mg QD (7) Acquired hypothyroidism: Code(s): E03.9 - Hypothyroidism, unspecified Category: Medical Plan: Continue Levothyroxine 112 mcg QD (8) Impaired fasting glucose: Code(s): R73.01 - Impaired fasting glucose Category: Medical Plan: Her HgbA1c was normal at 5.7% when previously checked Reinforced low calorie/low carb diet; exercise as tolerated (9) Anxiety: Code(s): F41.9 - Anxiety disorder, unspecified Category: Medical Plan: Continue Escitalopram 10 mg QD (10) Obesity (BMI 30-39.9): Code(s): E66.9 - Obesity, unspecified Category: Medical Plan: Reinforced diet/exercise as tolerated/lose weight Plan Patient is currently medically optimized and has no contraindications to undergo planned cataract surgeries as scheduled Follow up as scheduled in 3 to 4 months
[2024-12-13 12:36] VITALS: BP 106/58; PULSE 62; RESP 18; TEMP 34.3; O2SAT 97; BMI 32.6
[2024-12-13 13:09] VITALS: BP 122/78
== END 2024-12-13 13:48 | disposition home or self-care (01) ==
LOC: HO.HMCH 12:01
PROVIDERS: PCP Internal Medicine; Visit Provider Internal Medicine
DX: I48.91 Unspecified atrial fibrillation (principal); Z01.818 Encounter for other preprocedural examination; E66.9 Obesity, unspecified; Z68.32 Body mass index [BMI] 32.0-32.9, adult; H25.9 Unspecified age-related cataract; I25.10 Atherosclerotic heart disease of native coronary artery without angina pectoris; E78.00 Pure hypercholesterolemia, unspecified; I10 Essential (primary) hypertension; E03.9 Hypothyroidism, unspecified; R73.01 Impaired fasting glucose; F41.9 Anxiety disorder, unspecified

== ENCOUNTER → 2024-12-13 12:00 | Outpatient (BNVA) | payer MEDICARE, MEDICAID, SELFPAY | PROVIDERS: PCP Internal Medicine; Visit Provider Internal Medicine | DX: Z01.818 Encounter for other preprocedural examination (principal); H25.9 Unspecified age-related cataract; I25.10 Atherosclerotic heart disease of native coronary artery without angina pectoris; I48.91 Unspecified atrial fibrillation; E78.00 Pure hypercholesterolemia, unspecified; I10 Essential (primary) hypertension; E03.9 Hypothyroidism, unspecified; R73.01 Impaired fasting glucose; F41.9 Anxiety disorder, unspecified; E66.9 Obesity, unspecified; Z68.32 Body mass index [BMI] 32.0-32.9, adult | CPT/HCPCS: 99212 ==